=== PATIENT | female | born 1950 | race Caucasian/White ===

== ENCOUNTER 2020-01-27 14:50 | Inpatient (IN) | payer MEDICARE, MEDICAID, SELFPAY ==
[2020-01-27] VITALS (13 sets, daily range): BP systolic 137–179; BP diastolic 73–99; PULSE 109–122; RESP 16–32; TEMP 36.5–36.6; O2SAT 91–97; BMI 27.6; BMI 28.5
--- NOTE | 2020-01-27 15:23 | ED.SOB ---
HPI - SOB/Dyspnea <Annamariamellissa HernándezDO - Last Filed: 01/30/20 07:38> General Chief Complaint: Shortness of Breath/Dyspnea Stated Complaint: SOB Time Seen by Provider: 01/27/20 15:08 Related Data Home Medications Medication Instructions Recorded Confirmed No Known Home Medications 01/27/20 01/27/20 Allergies Allergy/AdvReac Type Severity Reaction Status Date / Time No Known Drug Allergies Allergy Verified 01/27/20 15:06 <Jennifer Leroy PA-C - Last Filed: 01/27/20 23:01> General Source: patient and family Mode of arrival: Wheelchair Limitations: no limitations History of Present Illness HPI Narrative: This is a 69-year-old woman with a history of CVA 2012 with reported mild left-sided deficit, chronic shortness of breath, hypertension, not on medications for the last 6 years with no PCP who presents to the emergency department from [facility] after a telemedicine visit and a chest x-ray concerning for possible CHF exacerbation with pleural effusions. Patient states that she has had increasing shortness of breath for the last 2 weeks. She notes this is worse with exertion and does report chronic issues with shortness of breath that come and go but this is the worse she has ever noted that to be. She also endorses a cough for the last few weeks but is not productive. She did feel last week she was having some ?panic attacks? and notes that this is unusual for her. Her reports that she had episode last week where she became sweaty and cold and he felt her heart rate and it was elevated She denies any fevers, chills, abdominal pain, nausea, vomiting, diarrhea, constipation or any other symptoms. <Jennifer Leroy PA-C - Last Filed: 01/27/20 23:01> Review of Systems Narrative: GENERAL: Denies chills, fatigue, malaise, fever, sweats. HEENT: Denies sinus pain, ear pain, sore throat, difficulty swallowing, dizziness. RESPIRATORY: Positive for dyspnea worse with exertion, positive for cough for 2 weeks, negative for wheezing, hemoptysis, sputum. CARDIOVASCULAR: Denies chest pain, positive for 1 episode of rapid heart rate/palpitations past week,, negative for orthopnea, edema, GASTROINTESTINAL: Denies nausea, vomiting, abdominal pain, diarrhea, constipation, melena. : Denies dysuria, frequency, incontinence, hematuria, urinary retention. MUSCULOSKELETAL: denies weakness, joint pain, or bony pain SKIN: Denies rash, skin lesions, or other NEUROLOGIC: Denies weakness, headache, numbness, change in speech, confusion, seizures, incoordination. PSYCHIATRIC: No concerning psychosocial issues. 12 point review of systems is negative except for those stated above ROS Unobtainable: All systems reviewed & are unremarkable except as noted in HPI and below Patient History <Annamaria Hernández DO - Last Filed: 01/30/20 07:38> Medical History CVA (cerebral vascular accident) (Acute) Hypertension (Acute) Surgical History Status post carotid surgery (Acute) Family History Father No problems noted. Mother Coronary artery disease Myocardial infarction Stroke Sister Myocardial infarction Social History household members: spouse and children Smoking Status: Unknown if ever smoked <Jennifer Leroy PA-C - Last Filed: 01/27/20 23:01> Smoking Status: Unknown if ever smoked alcohol intake frequency: holidays/special occasions only Substance Use Type: does not use Exam <DO Patricia Silvestre Last Filed: 01/30/20 07:38> Initial Vital Signs Initial Vital Signs: Vital Signs Temperature 97.7 F 01/27/20 15:00 Pulse Rate 122 H 01/27/20 15:00 Respiratory Rate 31 H 01/27/20 15:00 Blood Pressure 171/99 H 01/27/20 15:00 Pulse Oximetry 96 01/27/20 15:00 <Jennifer Leroy PA-C - Last Filed: 01/27/20 23:01> Narrative Exam Narrative: GENERAL: 69 year old patient appears stated age. Well-nourished, well-developed patient, in mild distress. HEAD: Atraumatic. Normocephalic. EYES: Pupils equal round and reactive. Extraocular motions intact. No scleral icterus. No injection or drainage. ENT: Nose without bleeding, purulent drainage. Throat without erythema, tonsillar hypertrophy or exudate. Airway patent. NECK: Trachea midline. Non tender CARDIOVASCULAR: Regular rate and rhythm without murmurs, gallops, or rubs. RESPIRATORY: Patient is slightly dyspneic at rest respiration rate 24. Upper wong are clear to auscultation bilaterally without wheezes rales or rhonchi, lower wong have mild crackles in the bases. GASTROINTESTINAL: Abdomen soft, non-tender, nondistended. EXTREMITIES: No edema or joint tenderness. BACK: Nontender without deformity or crepitance. No flank tenderness. NEURO: AOx3. SKIN: No rash or erythema of visible areas Initial Vital Signs Initial Vital Signs: Vital Signs Temperature 97.7 F 01/27/20 15:00 Pulse Rate 122 H 01/27/20 15:00 Respiratory Rate 31 H 01/27/20 15:00 Blood Pressure 171/99 H 01/27/20 15:00 Pulse Oximetry 96 01/27/20 15:00 <Jennifer Leroy PA-C - Last Filed: 01/27/20 23:01> GCS [place] coma scale eye opening: Spontaneous [place] coma scale verbal response: Orientated [place] coma scale motor response: Obey commands [place] coma scale total score: 15 HEART Score Heart Score history: Slightly Suspicious Heart Score EKG: Non-Specific repolarization disturbance Heart Score Age: > or = 65 years old Heart Score risk factors: 1-2 risk factors Heart Score troponin: 1-3 times normal limit Heart Score Total: 5 Course <Annamaria Hernández DO - Last Filed: 01/30/20 07:38> Orders Ordered: Acetaminophen (Tylenol) 650 mg PO Q6HR PRN PRN Reason: Fever/Mild Pain (1-3) Al Hydrox/Mg Hydrox/Simethicone (Maalox Plus) 30 ml PO Q6HR PRN PRN Reason: Dyspepsia Albuterol (Ventolin Hfa (Vent/Covid R/O)) 2 puff INH RTQ4HR PRN PRN Reason: Shortness Of Breath Or Wheezing Aspirin (Aspirin Ec) 81 mg PO DAILY [facility] Last Admin: 01/29/20 08:39 Dose: 81 mg Documented by: Admin: 01/28/20 09:35 Dose: 81 mg Documented by: ERVIN Atorvastatin Calcium (Lipitor) 40 mg PO BEDTIME [facility] Last Admin: 01/29/20 20:24 Dose: 40 mg Documented by: Admin: 01/28/20 21:31 Dose: 40 mg Documented by: NHI Bisacodyl (Dulcolax) 10 mg [place] DAILY PRN PRN Reason: Constipation Calcium Carbonate (Tums) 1,000 mg PO Q4HR PRN PRN Reason: Dyspepsia Docusate Sodium (Colace) 100 mg PO BID [facility] Last Admin: 01/29/20 20:24 Dose: 100 mg Documented by: Admin: 01/29/20 08:39 Dose: 100 mg Documented by: Admin: 01/28/20 21:32 Dose: Not Given Documented by: Admin: 01/28/20 09:35 Dose: Not Given Documented by: Admin: 01/27/20 20:20 Dose: 100 mg Documented by: LAURA Enoxaparin Sodium (Lovenox) 40 mg SUBCUT DAILY [facility] Last Admin: 01/29/20 08:39 Dose: 40 mg Documented by: Admin: 01/28/20 09:37 Dose: 40 mg Documented by: ERVIN Furosemide (Lasix) 40 mg PO 0800,1700 [facility] Last Admin: 01/29/20 16:31 Dose: 40 mg Documented by: ARNOLD Influenza Virus Vaccine (Flu Hd Vaccine) 0.7 ml IM .ONCE ONE Stop: 01/30/20 09:01 Metoprolol Tartrate (Lopressor) 50 mg PO BID [facility] Last Admin: 01/29/20 20:24 Dose: 50 mg Documented by: ARNOLD Ondansetron HCl (Zofran) 4 mg IV Q8HR PRN PRN Reason: Nausea And Vomiting Sodium Chloride (Normal Saline 0.9% Flush) 10 ml IV PRN PRN PRN Reason: Flush Sodium Chloride (Normal Saline 0.9% Flush) 10 ml IV BID [facility] Last Admin: 01/29/20 20:22 Dose: 10 ml Documented by: Admin: 01/29/20 08:39 Dose: 10 ml Documented by: Admin: 01/28/20 21:32 Dose: 10 ml Documented by: Admin: 10/23/20 09:36 Dose: 10 ml Documented by: ERVIN Discontinued Medications Acetaminophen (Tylenol) 650 mg PO Q6HR [facility] Aspirin (Aspirin Chew) 324 mg PO NOW ONE Stop: 01/27/20 16:27 Last Admin: 01/27/20 16:43 Dose: 324 mg Documented by: LEBRON Docusate Sodium (Colace) 100 mg PO BID [facility] Enoxaparin Sodium (Lovenox) 40 mg SUBCUT DAILY [facility] Furosemide (Lasix) 40 mg IV NOW ONE Stop: 01/27/20 16:27 Last Admin: 01/27/20 16:43 Dose: 40 mg Documented by: LEBRON Furosemide (Lasix) 20 mg PO DAILY [facility] Last Admin: 01/28/20 09:35 Dose: 20 mg Documented by: ERVIN Furosemide (Lasix) 40 mg IV 0700,1700 [facility] Last Admin: 01/29/20 06:03 Dose: 40 mg Documented by: Admin: 01/28/20 17:38 Dose: 40 mg Documented by: ENZO Influenza Virus Vaccine (Flu Hd Vaccine) 0.7 ml IM .ONCE ONE Stop: 01/28/20 14:01 Last Admin: 01/29/20 12:00 Dose: Not Given Documented by: JOVANI Lisinopril (Zestril) 5 mg PO NOW ONE Stop: 01/28/20 02:21 Last Admin: 01/28/20 02:47 Dose: 5 mg Documented by: QUINN Metoprolol Tartrate (Lopressor) 12.5 mg PO NOW ONE Stop: 01/27/20 19:31 Last Admin: 01/27/20 20:15 Dose: 12.5 mg Documented by: LAURA Metoprolol Tartrate (Lopressor) 12.5 mg PO BID [facility] Metoprolol Tartrate (Lopressor) 12.5 mg PO NOW ONE Stop: 01/28/20 02:19 Last Admin: 01/28/20 02:47 Dose: 12.5 mg Documented by: QUINN Metoprolol Tartrate (Lopressor) 25 mg PO BID [facility] Last Admin: 01/29/20 08:39 Dose: 25 mg Documented by: Admin: 01/28/20 21:31 Dose: 25 mg Documented by: Admin: 01/28/20 09:36 Dose: 25 mg Documented by: ERVIN Morphine Sulfate (Morphine) 2 mg IV Q4HR PRN PRN Reason: Pain, Moderate (4-6) Naloxone HCl (Narcan) 0.2 mg IV Q2MIN PRN PRN Reason: Opiate Reversal Naloxone HCl (Narcan) 0.2 mg IV Q2MIN PRN PRN Reason: Opiate Reversal Oxycodone HCl (Percolone) 5 mg PO Q6HR PRN PRN Reason: Pain, Moderate (4-6) Potassium Chloride (Klor-Con M20) 40 meq PO NOW ONE Stop: 01/28/20 11:06 Last Admin: 01/28/20 11:58 Dose: 40 meq Documented by: ERVIN Sennosides (Senna) 17.2 mg PO BEDTIME [facility] Vital Signs Vital signs: Vital Signs - 8 hr 01/27/20 15:00 01/27/20 15:04 01/27/20 15:30 Temperature 97.7 F Pulse Rate 122 H 120 H 119 H Respiratory Rate 31 H 32 H 30 H Blood Pressure 171/99 H 158/91 H Pulse Oximetry 96 96 96 01/27/20 16:00 01/27/20 16:30 01/27/20 17:03 Temperature Pulse Rate 113 H 114 H 122 H Respiratory Rate 27 H 27 H 32 H Blood Pressure 145/84 H 148/86 H 179/93 H Pulse Oximetry 92 95 97 01/27/20 17:30 Temperature Pulse Rate 116 H Respiratory Rate 29 H Blood Pressure 148/83 H Pulse Oximetry 93 <Jennifer Leroy PA-C - Last Filed: 01/27/20 23:01> Orders Ordered: Acetaminophen (Tylenol) 650 mg PO Q6HR PRN PRN Reason: Fever/Mild Pain (1-3) Al Hydrox/Mg Hydrox/Simethicone (Maalox Plus) 30 ml PO Q6HR PRN PRN Reason: Dyspepsia Albuterol (Ventolin Hfa (Vent/Covid R/O)) 2 puff INH RTQ4HR PRN PRN Reason: Shortness Of Breath Or Wheezing Aspirin (Aspirin Ec) 81 mg PO DAILY [facility] Last Admin: 01/29/20 08:39 Dose: 81 mg Documented by: Admin: 01/28/20 09:35 Dose: 81 mg Documented by: ERVIN Atorvastatin Calcium (Lipitor) 40 mg PO BEDTIME [facility] Last Admin: 01/29/20 20:24 Dose: 40 mg Documented by: Admin: 01/28/20 21:31 Dose: 40 mg Documented by: NHI Bisacodyl (Dulcolax) 10 mg [place] DAILY PRN PRN Reason: Constipation Calcium Carbonate (Tums) 1,000 mg PO Q4HR PRN PRN Reason: Dyspepsia Docusate Sodium (Colace) 100 mg PO BID [facility] Last Admin: 01/29/20 20:24 Dose: 100 mg Documented by: Admin: 01/29/20 08:39 Dose: 100 mg Documented by: Admin: 01/28/20 21:32 Dose: Not Given Documented by: Admin: 01/28/20 09:35 Dose: Not Given Documented by: Admin: 01/27/20 20:20 Dose: 100 mg Documented by: LAURA Enoxaparin Sodium (Lovenox) 40 mg SUBCUT DAILY [facility] Last Admin: 01/29/20 08:39 Dose: 40 mg Documented by: Admin: 01/28/20 09:37 Dose: 40 mg Documented by: ERVIN Furosemide (Lasix) 40 mg PO 0800,1700 [facility] Last Admin: 01/29/20 16:31 Dose: 40 mg Documented by: ARNOLD Influenza Virus Vaccine (Flu Hd Vaccine) 0.7 ml IM .ONCE ONE Stop: 01/30/20 09:01 Metoprolol Tartrate (Lopressor) 50 mg PO BID [facility] Last Admin: 01/29/20 20:24 Dose: 50 mg Documented by: ARNOLD Ondansetron HCl (Zofran) 4 mg IV Q8HR PRN PRN Reason: Nausea And Vomiting Sodium Chloride (Normal Saline 0.9% Flush) 10 ml IV PRN PRN PRN Reason: Flush Sodium Chloride (Normal Saline 0.9% Flush) 10 ml IV BID [facility] Last Admin: 01/29/20 20:22 Dose: 10 ml Documented by: Admin: 01/29/20 08:39 Dose: 10 ml Documented by: Admin: 01/28/20 21:32 Dose: 10 ml Documented by: Admin: 01/28/20 09:36 Dose: 10 ml Documented by: ERVIN Discontinued Medications Acetaminophen (Tylenol) 650 mg PO Q6HR [facility] Aspirin (Aspirin Chew) 324 mg PO NOW ONE Stop: 01/27/20 16:27 Last Admin: 01/27/20 16:43 Dose: 324 mg Documented by: LEBRON Docusate Sodium (Colace) 100 mg PO BID [facility] Enoxaparin Sodium (Lovenox) 40 mg SUBCUT DAILY [facility] Furosemide (Lasix) 40 mg IV NOW ONE Stop: 01/27/20 16:27 Last Admin: 01/27/20 16:43 Dose: 40 mg Documented by: LEBRON Furosemide (Lasix) 20 mg PO DAILY [facility] Last Admin: 01/28/20 09:35 Dose: 20 mg Documented by: ERVIN Furosemide (Lasix) 40 mg IV 0700,1700 [facility] Last Admin: 01/29/20 06:03 Dose: 40 mg Documented by: Admin: 01/28/20 17:38 Dose: 40 mg Documented by: ENZO Influenza Virus Vaccine (Flu Hd Vaccine) 0.7 ml IM .ONCE ONE Stop: 01/28/20 14:01 Last Admin: 01/29/20 12:00 Dose: Not Given Documented by: JOVANI Lisinopril (Zestril) 5 mg PO NOW ONE Stop: 01/28/20 02:21 Last Admin: 01/28/20 02:47 Dose: 5 mg Documented by: QUINN Metoprolol Tartrate (Lopressor) 12.5 mg PO NOW ONE Stop: 01/27/20 19:31 Last Admin: 01/27/20 20:15 Dose: 12.5 mg Documented by: LAURA Metoprolol Tartrate (Lopressor) 12.5 mg PO BID [facility] Metoprolol Tartrate (Lopressor) 12.5 mg PO NOW ONE Stop: 01/28/20 02:19 Last Admin: 01/28/20 02:47 Dose: 12.5 mg Documented by: QUINN Metoprolol Tartrate (Lopressor) 25 mg PO BID [facility] Last Admin: 01/29/20 08:39 Dose: 25 mg Documented by: Admin: 01/28/20 21:31 Dose: 25 mg Documented by: Admin: 01/28/20 09:36 Dose: 25 mg Documented by: ERVIN Morphine Sulfate (Morphine) 2 mg IV Q4HR PRN PRN Reason: Pain, Moderate (4-6) Naloxone HCl (Narcan) 0.2 mg IV Q2MIN PRN PRN Reason: Opiate Reversal Naloxone HCl (Narcan) 0.2 mg IV Q2MIN PRN PRN Reason: Opiate Reversal Oxycodone HCl (Percolone) 5 mg PO Q6HR PRN PRN Reason: Pain, Moderate (4-6) Potassium Chloride (Klor-Con M20) 40 meq PO NOW ONE Stop: 01/28/20 11:06 Last Admin: 01/28/20 11:58 Dose: 40 meq Documented by: ERVIN Sennosides (Senna) 17.2 mg PO BEDTIME [facility] Vital Signs Vital signs: Vital Signs - 8 hr 01/27/20 15:00 01/27/20 15:04 01/27/20 15:30 Temperature 97.7 F Pulse Rate 122 H 120 H 119 H Respiratory Rate 31 H 32 H 30 H Blood Pressure 171/99 H 158/91 H Pulse Oximetry 96 96 96 01/27/20 16:00 01/27/20 16:30 01/27/20 17:03 Temperature Pulse Rate 113 H 114 H 122 H Respiratory Rate 27 H 27 H 32 H Blood Pressure 145/84 H 148/86 H 179/93 H Pulse Oximetry 92 95 97 01/27/20 17:30 Temperature Pulse Rate 116 H Respiratory Rate 29 H Blood Pressure 148/83 H Pulse Oximetry 93 MDM - SOB/Dyspnea <Annamaria Hernández, - Last Filed: 01/30/20 07:38> Lab Data Result diagrams: 01/30/20 05:55 01/30/20 05:55 Labs: Lab Results 01/27/20 01/27/20 01/27/20 Range/Units 15:15 15:20 15:20 WBC 11.3 H (4.5-11.0) X10^3/uL RBC 4.55 (4.0-5.2) X10^6/uL Hgb 13.3 (12.0-16.0) g/dL Hct 40.0 (36-46) % MCV 88.0 (80-100) fL MCH 29.3 (26-34) PG MCHC 33.3 (30-36) % RDW 13.6 (11.6-14.8) % Plt Count 362 (150-400) X10^3/uL Neut % (Auto) 68.1 (50-75) % Lymph % (Auto) 23.8 L (25-40) % Ralls % (Auto) 7.2 (3-14) % Eos % (Auto) 0.3 L (2-4) % Baso % (Auto) 0.6 (0-2) % Neut # (Auto) 7700 H (5149-2109) /uL Lymph # (Auto) 2700 (5266-6700) /uL Ralls # (Auto) 800 (0-900) /uL Eos # (Auto) 0 (0-450) /uL Baso # (Auto) 100 (0-100) /uL Sodium 141 (137-145) mmol/L Potassium 4.1 (3.4-5.1) mmol/L Chloride 112 H (98-107) mmol/L Carbon Dioxide 22 (22-32) mmol/L BUN 29 H (7-17) mg/dL Creatinine 0.68 (0.52-1.04) mg/dL Estimated GFR > 60.0 (>60) mL/min BUN/Creatinine Ratio 42.6 H (6-22) Glucose 107 (80-110) mg/dL Lactate (0.7-2.1) mmol/L Calcium 9.4 (8.4-10.2) mg/dL Magnesium (1.6-2.3) mg/dL Total Bilirubin 0.8 (0.2-1.3) mg/dL AST 37 H (14-36) IU/L ALT 60 H (<35) IU/L Alkaline Phosphatase 73 (38-126) U/L Total Creatine Kinase (30-135) U/L CK-MB (CK-2) CK-MB (CK-2) Rel Index Troponin I (0.01-0.034) ng/mL NT-Pro-B Natriuret Pep (<125) pg/mL Total Protein 6.8 (6.3-8.2) g/dL Albumin 4.0 (3.5-5.0) g/dL Globulin 2.8 (1.7-4.1) g/dL Albumin/Globulin Ratio 1.4 (1.0-2.8) Procalcitonin (<0.5) ng/mL TSH (0.47-4.68) uIU/mL Urine Color Urine Appearance Urine pH (4.5-8.0) Ur Specific [place] (1.000-1.035) Urine Protein (Negative) Urine Glucose (UA) (Negative) g/dL Urine Ketones (NEGATIVE) Urine Occult Blood (Negative) Urine Nitrate (Negative) Urine Bilirubin (NEGATIVE) Urine Urobilinogen (0.2) E.U./dL Ur Leukocyte Esterase (NEGATIVE) Urine RBC (0-5/HPF) Urine WBC (0-5/HPF) Ur Squamous Epith Cells (0-5/HPF) Urine Bacteria (None) Ur Culture Indicated? COVID-19 PCR Negative (Negative) 01/27/20 01/27/20 01/27/20 Range/Units 15:20 15:20 15:20 WBC (4.5-11.0) X10^3/uL RBC (4.0-5.2) X10^6/uL Hgb (12.0-16.0) g/dL Hct (36-46) % MCV (80-100) fL MCH (26-34) PG MCHC (30-36) % RDW (11.6-14.8) % Plt Count (150-400) X10^3/uL Neut % (Auto) (50-75) % Lymph % (Auto) (25-40) % Ralls % (Auto) (3-14) % Eos % (Auto) (2-4) % Baso % (Auto) (0-2) % Neut # (Auto) (8283-1084) /uL Lymph # (Auto) (8333-8796) /uL Ralls # (Auto) (0-900) /uL Eos # (Auto) (0-450) /uL Baso # (Auto) (0-100) /uL Sodium (137-145) mmol/L Potassium (3.4-5.1) mmol/L Chloride (98-107) mmol/L Carbon Dioxide (22-32) mmol/L BUN (7-17) mg/dL Creatinine (0.52-1.04) mg/dL Estimated GFR (>60) mL/min BUN/Creatinine Ratio (6-22) Glucose (80-110) mg/dL Lactate 1.5 (0.7-2.1) mmol/L Calcium (8.4-10.2) mg/dL Magnesium 2.2 (1.6-2.3) mg/dL Total Bilirubin (0.2-1.3) mg/dL AST (14-36) IU/L ALT (<35) IU/L Alkaline Phosphatase (38-126) U/L Total Creatine Kinase 37 (30-135) U/L CK-MB (CK-2) TNP CK-MB (CK-2) Rel Index TNP Troponin I 0.046 H (0.01-0.034) ng/mL NT-Pro-B Natriuret Pep 22817 H (<125) pg/mL Total Protein (6.3-8.2) g/dL Albumin (3.5-5.0) g/dL Globulin (1.7-4.1) g/dL Albumin/Globulin Ratio (1.0-2.8) Procalcitonin < 0.05 (<0.5) ng/mL TSH (0.47-4.68) uIU/mL Urine Color Urine Appearance Urine pH (4.5-8.0) Ur Specific [place] (1.000-1.035) Urine Protein (Negative) Urine Glucose (UA) (Negative) g/dL Urine Ketones (NEGATIVE) Urine Occult Blood (Negative) Urine Nitrate (Negative) Urine Bilirubin (NEGATIVE) Urine Urobilinogen (0.2) E.U./dL Ur Leukocyte Esterase (NEGATIVE) Urine RBC (0-5/HPF) Urine WBC (0-5/HPF) Ur Squamous Epith Cells (0-5/HPF) Urine Bacteria (None) Ur Culture Indicated? COVID-19 PCR (Negative) 01/27/20 01/27/20 Range/Units 15:20 17:06 WBC (4.5-11.0) X10^3/uL RBC (4.0-5.2) X10^6/uL Hgb (12.0-16.0) g/dL Hct (36-46) % MCV (80-100) fL MCH (26-34) PG MCHC (30-36) % RDW (11.6-14.8) % Plt Count (150-400) X10^3/uL Neut % (Auto) (50-75) % Lymph % (Auto) (25-40) % Ralls % (Auto) (3-14) % Eos % (Auto) (2-4) % Baso % (Auto) (0-2) % Neut # (Auto) (0867-9724) /uL Lymph # (Auto) (1021-4901) /uL Ralls # (Auto) (0-900) /uL Eos # (Auto) (0-450) /uL Baso # (Auto) (0-100) /uL Sodium (137-145) mmol/L Potassium (3.4-5.1) mmol/L Chloride (98-107) mmol/L Carbon Dioxide (22-32) mmol/L BUN (7-17) mg/dL Creatinine (0.52-1.04) mg/dL Estimated GFR (>60) mL/min BUN/Creatinine Ratio (6-22) Glucose (80-110) mg/dL Lactate (0.7-2.1) mmol/L Calcium (8.4-10.2) mg/dL Magnesium (1.6-2.3) mg/dL Total Bilirubin (0.2-1.3) mg/dL AST (14-36) IU/L ALT (<35) IU/L Alkaline Phosphatase (38-126) U/L Total Creatine Kinase (30-135) U/L CK-MB (CK-2) CK-MB (CK-2) Rel Index Troponin I (0.01-0.034) ng/mL NT-Pro-B Natriuret Pep (<125) pg/mL Total Protein (6.3-8.2) g/dL Albumin (3.5-5.0) g/dL Globulin (1.7-4.1) g/dL Albumin/Globulin Ratio (1.0-2.8) Procalcitonin (<0.5) ng/mL TSH 1.50 (0.47-4.68) uIU/mL Urine Color Yellow Urine Appearance Clear Urine pH 5.0 (4.5-8.0) Ur Specific [place] 1.025 (1.000-1.035) Urine Protein Negative (Negative) Urine Glucose (UA) Negative (Negative) g/dL Urine Ketones Trace H (NEGATIVE) Urine Occult Blood 2+ H (Negative) Urine Nitrate Negative (Negative) Urine Bilirubin Negative (NEGATIVE) Urine Urobilinogen 0.2 (0.2) E.U./dL Ur Leukocyte Esterase Negative (NEGATIVE) Urine RBC 1-5/hpf (0-5/HPF) Urine WBC 0-1/hpf (0-5/HPF) Ur Squamous Epith Cells 0-1 /hpf (0-5/HPF) Urine Bacteria None seen (None) Ur Culture Indicated? Cult not indicated COVID-19 PCR (Negative) ECG Data Attestation: I personally reviewed and interpreted this ECG as follows: Prior ECG tracings: available for review Interpretation: Sinus tachycardia rate of 118 CA 164 QRS of 104 and QTC of 487. LVH, patient has some lotion artifact but no ST elevation appreciated. Patient has prior EKG from July of 2012 which has similar LVH refill pattern but does not have sinus tachycardia. Nonspecific ST change noted today. <Jennifer Leroy PA-C - Last Filed: 01/27/20 23:01> Differential Diagnosis Differential diagnosis: Likely acute exacerbation of chronic obstructive airways disease, congestive heart failure, community acquired pneumonia, pulmonary embolism and other (COVID, URI) Medical Records Attestation: I reviewed the patient's medical records. Lab Data Attestation: I reviewed the patient's lab results. Labs: Lab Results 01/27/20 01/27/20 01/27/20 Range/Units 15:15 15:20 15:20 WBC 11.3 H (4.5-11.0) X10^3/uL RBC 4.55 (4.0-5.2) X10^6/uL Hgb 13.3 (12.0-16.0) g/dL Hct 40.0 (36-46) % MCV 88.0 (80-100) fL MCH 29.3 (26-34) PG MCHC 33.3 (30-36) % RDW 13.6 (11.6-14.8) % Plt Count 362 (150-400) X10^3/uL Neut % (Auto) 68.1 (50-75) % Lymph % (Auto) 23.8 L (25-40) % Ralls % (Auto) 7.2 (3-14) % Eos % (Auto) 0.3 L (2-4) % Baso % (Auto) 0.6 (0-2) % Neut # (Auto) 7700 H (6477-0416) /uL Lymph # (Auto) 2700 (8731-5125) /uL Ralls # (Auto) 800 (0-900) /uL Eos # (Auto) 0 (0-450) /uL Baso # (Auto) 100 (0-100) /uL Sodium 141 (137-145) mmol/L Potassium 4.1 (3.4-5.1) mmol/L Chloride 112 H (98-107) mmol/L Carbon Dioxide 22 (22-32) mmol/L BUN 29 H (7-17) mg/dL Creatinine 0.68 (0.52-1.04) mg/dL Estimated GFR > 60.0 (>60) mL/min BUN/Creatinine Ratio 42.6 H (6-22) Glucose 107 (80-110) mg/dL Lactate (0.7-2.1) mmol/L Calcium 9.4 (8.4-10.2) mg/dL Magnesium (1.6-2.3) mg/dL Total Bilirubin 0.8 (0.2-1.3) mg/dL AST 37 H (14-36) IU/L ALT 60 H (<35) IU/L Alkaline Phosphatase 73 (38-126) U/L Total Creatine Kinase (30-135) U/L CK-MB (CK-2) CK-MB (CK-2) Rel Index Troponin I (0.01-0.034) ng/mL NT-Pro-B Natriuret Pep (<125) pg/mL Total Protein 6.8 (6.3-8.2) g/dL Albumin 4.0 (3.5-5.0) g/dL Globulin 2.8 (1.7-4.1) g/dL Albumin/Globulin Ratio 1.4 (1.0-2.8) Procalcitonin (<0.5) ng/mL TSH (0.47-4.68) uIU/mL Urine Color Urine Appearance Urine pH (4.5-8.0) Ur Specific [place] (1.000-1.035) Urine Protein (Negative) Urine Glucose (UA) (Negative) g/dL Urine Ketones (NEGATIVE) Urine Occult Blood (Negative) Urine Nitrate (Negative) Urine Bilirubin (NEGATIVE) Urine Urobilinogen (0.2) E.U./dL Ur Leukocyte Esterase (NEGATIVE) Urine RBC (0-5/HPF) Urine WBC (0-5/HPF) Ur Squamous Epith Cells (0-5/HPF) Urine Bacteria (None) Ur Culture Indicated? COVID-19 PCR Negative (Negative) 01/27/20 01/27/20 01/27/20 Range/Units 15:20 15:20 15:20 WBC (4.5-11.0) X10^3/uL RBC (4.0-5.2) X10^6/uL Hgb (12.0-16.0) g/dL Hct (36-46) % MCV (80-100) fL MCH (26-34) PG MCHC (30-36) % RDW (11.6-14.8) % Plt Count (150-400) X10^3/uL Neut % (Auto) (50-75) % Lymph % (Auto) (25-40) % Ralls % (Auto) (3-14) % Eos % (Auto) (2-4) % Baso % (Auto) (0-2) % Neut # (Auto) (4851-7062) /uL Lymph # (Auto) (2981-9718) /uL Ralls # (Auto) (0-900) /uL Eos # (Auto) (0-450) /uL Baso # (Auto) (0-100) /uL Sodium (137-145) mmol/L Potassium (3.4-5.1) mmol/L Chloride (98-107) mmol/L Carbon Dioxide (22-32) mmol/L BUN (7-17) mg/dL Creatinine (0.52-1.04) mg/dL Estimated GFR (>60) mL/min BUN/Creatinine Ratio (6-22) Glucose (80-110) mg/dL Lactate 1.5 (0.7-2.1) mmol/L Calcium (8.4-10.2) mg/dL Magnesium 2.2 (1.6-2.3) mg/dL Total Bilirubin (0.2-1.3) mg/dL AST (14-36) IU/L ALT (<35) IU/L Alkaline Phosphatase (38-126) U/L Total Creatine Kinase 37 (30-135) U/L CK-MB (CK-2) TNP CK-MB (CK-2) Rel Index TNP Troponin I 0.046 H (0.01-0.034) ng/mL NT-Pro-B Natriuret Pep 01108 H (<125) pg/mL Total Protein (6.3-8.2) g/dL Albumin (3.5-5.0) g/dL Globulin (1.7-4.1) g/dL Albumin/Globulin Ratio (1.0-2.8) Procalcitonin < 0.05 (<0.5) ng/mL TSH (0.47-4.68) uIU/mL Urine Color Urine Appearance Urine pH (4.5-8.0) Ur Specific [place] (1.000-1.035) Urine Protein (Negative) Urine Glucose (UA) (Negative) g/dL Urine Ketones (NEGATIVE) Urine Occult Blood (Negative) Urine Nitrate (Negative) Urine Bilirubin (NEGATIVE) Urine Urobilinogen (0.2) E.U./dL Ur Leukocyte Esterase (NEGATIVE) Urine RBC (0-5/HPF) Urine WBC (0-5/HPF) Ur Squamous Epith Cells (0-5/HPF) Urine Bacteria (None) Ur Culture Indicated? COVID-19 PCR (Negative) 01/27/20 01/27/20 Range/Units 15:20 17:06 WBC (4.5-11.0) X10^3/uL RBC (4.0-5.2) X10^6/uL Hgb (12.0-16.0) g/dL Hct (36-46) % MCV (80-100) fL MCH (26-34) PG MCHC (30-36) % RDW (11.6-14.8) % Plt Count (150-400) X10^3/uL Neut % (Auto) (50-75) % Lymph % (Auto) (25-40) % [place] % (Auto) (3-14) % Eos % (Auto) (2-4) % Baso % (Auto) (0-2) % Neut # (Auto) (0918-0396) /uL Lymph # (Auto) (4010-0289) /uL [place] # (Auto) (0-900) /uL Eos # (Auto) (0-450) /uL Baso # (Auto) (0-100) /uL Sodium (137-145) mmol/L Potassium (3.4-5.1) mmol/L Chloride (98-107) mmol/L Carbon Dioxide (22-32) mmol/L BUN (7-17) mg/dL Creatinine (0.52-1.04) mg/dL Estimated GFR (>60) mL/min BUN/Creatinine Ratio (6-22) Glucose (80-110) mg/dL Lactate (0.7-2.1) mmol/L Calcium (8.4-10.2) mg/dL Magnesium (1.6-2.3) mg/dL Total Bilirubin (0.2-1.3) mg/dL AST (14-36) IU/L ALT (<35) IU/L Alkaline Phosphatase (38-126) U/L Total Creatine Kinase (30-135) U/L CK-MB (CK-2) CK-MB (CK-2) Rel Index Troponin I (0.01-0.034) ng/mL NT-Pro-B Natriuret Pep (<125) pg/mL Total Protein (6.3-8.2) g/dL Albumin (3.5-5.0) g/dL Globulin (1.7-4.1) g/dL Albumin/Globulin Ratio (1.0-2.8) Procalcitonin (<0.5) ng/mL TSH 1.50 (0.47-4.68) uIU/mL Urine Color Yellow Urine Appearance Clear Urine pH 5.0 (4.5-8.0) Ur Specific [place] 1.025 (1.000-1.035) Urine Protein Negative (Negative) Urine Glucose (UA) Negative (Negative) g/dL Urine Ketones Trace H (NEGATIVE) Urine Occult Blood 2+ H (Negative) Urine Nitrate Negative (Negative) Urine Bilirubin Negative (NEGATIVE) Urine Urobilinogen 0.2 (0.2) E.U./dL Ur Leukocyte Esterase Negative (NEGATIVE) Urine RBC 1-5/hpf (0-5/HPF) Urine WBC 0-1/hpf (0-5/HPF) Ur Squamous Epith Cells 0-1 /hpf (0-5/HPF) Urine Bacteria None seen (None) Ur Culture Indicated? Cult not indicated COVID-19 PCR (Negative) Imaging Data Chest x-ray: Attestation: I personally reviewed and interpreted this imaging study as follows: Radiologist's Impression: [address] [place] [address] XRay Report Signed Patient: Reuben Haney#: [id number] : 3Acct:[id number] Age/Sex: 69 / FDate of Service: 01/27/20 Loc: ED Accession Number: [id number] Procedure: XR chest 1V Ordering Provider: Jennifer Leroy P.A-C PROCEDURE: XR CHEST 1V INDICATIONS: CHF TECHNIQUE: One view of the chest was acquired. COMPARISON: [facility], CHEST 1 VIEW, 07/06/2012, 14:08. FINDINGS: Surgical changes and devices: None. Lungs and pleura: Moderate size airspace opacity in left upper lung field is seen suggestive of left upper lobe infiltrate. Small bilateral pleural effusion is seen. Mild pulmonary vascular congestion and mild pulmonary edema is also noted. Mediastinum: Mediastinal contours appear normal. Heart size is enlarged. Bones and chest wall: No suspicious bony lesions. Overlying soft tissues appear unremarkable. IMPRESSION: CHF changes with suggestion of superimposed left upper lobe infiltrate. No pneumothorax. Dictated by: Remy Harding M.D. on 01/27/2020 at 15:51 Approved by: Remy Harding M.D. on 01/27/2020 at 15:52 ECG Data Attestation: I personally reviewed and interpreted this ECG as follows: Prior ECG tracings: not available for review Interpretation: Sinus tachycardia Rate 118, CA 164 QRS 104 MDM Narrative Medical decision making narrative: Uncomfortable appearing 69-year-old woman history of CVA 2012 reported chronic shortness of breath, not on any medications, 1 telemedicine visit in the last few days otherwise no reported medical care for 6 years. Patient's history and exam and x-ray are consistent with CHF exacerbation. Her BNP is over 11,000. She has a slightly elevated troponin likely resultant of her heart failure /exacerbation. EKG with sinus tachycardia and LVH. Patient has poor understanding of her medical history stop taking medications 6 years ago 1 year after her stroke, unclear if she has a history of CHF. Reports history of hypertension, not on any medications. A patient lives on [address] with no hospital, given her worsening shortness of breath, BNP, pleural effusions on her chest x-ray concern for possible pneumonia, she is admitted to the hospital for observation and further treatment. To the care of Dr. Hill. Lasix is initiated in the emergency department. Patient reported poor adherence with medications and medical care partially due to concern for cost, she may benefit from social work consult or resources to help her access medical insurance /ongoing medical care. Discharge Plan Departure Patient Disposition: Admitted as Observation Clinical Impression: Shortness of breath Acute CHF (congestive heart failure) Qualifiers: Heart failure type: unspecified Qualified Code(s): I50.9 - Heart failure, unspecified Discharge Date/Time: 01/27/20 18:51 Referrals: Sixto Jacobs MD [Primary Care Provider] - Admit Date/Time: 01/27/20 18:00 Admit Provider: Bran Hill
[2020-01-27 15:33] LABS: COVID19 -Nasal RAPID Negative (Negative)
[2020-01-27 15:39] LABS: Add Manual Diff / Slide Review NO; Basophils Absolute Auto 100 /uL (0-100); Basophils Percent Auto 0.6 % (0-2); Eosinophils Absolute Auto 0 /uL (0-450); Eosinophils Percent Auto 0.3 % (2-4); Hemoglobin 13.3 g/dL (12.0-16.0); Lymphocytes Absolute Auto 2700 /uL (1100-4500); Lymphocytes Percent Auto 23.8 % (25-40); Mean Corpuscular HGB Conc 33.3 % (30-36); Mean Corpuscular Hemoglobin 29.3 PG (26-34); Monocytes Absolute Auto 800 /uL (0-900); Monocytes Percent Auto 7.2 % (3-14); Neutrophils Absolute Auto 7700 /uL (1500-7000); Neutrophils Percent Auto 68.1 % (50-75); Platelet Count 362 X10^3/uL (150-400); Red Blood Cell Count 4.55 X10^6/uL (4.0-5.2); Red Cell Distribution Width 13.6 % (11.6-14.8); White Blood Cell Count 11.3 X10^3/uL (4.5-11.0)
[2020-01-27 15:55] LABS: Lactate (Lactic Acid) 1.5 mmol/L (0.7-2.1)
[2020-01-27 15:58] LABS: Creatine Kinase 37 U/L (30-135); Magnesium 2.2 mg/dL (1.6-2.3)
[2020-01-27 15:59] LABS: Alanine Aminotransferase 60 IU/L (<35); Albumin Globulin Ratio 1.4 (1.0-2.8); Alkaline Phosphatase 73 U/L (38-126); Aspartate Aminotransferase 37 IU/L (14-36); BUN Creatinine Ratio 42.6 (6-22); Bilirubin Total 0.8 mg/dL (0.2-1.3); Blood Urea Nitrogen 29 mg/dL (7-17); Calcium 9.4 mg/dL (8.4-10.2); Carbon Dioxide 22 mmol/L (22-32); Chloride 112 mmol/L (98-107); Estimated Glomerular Filt Rate > 60.0 mL/min (>60); Globulin 2.8 g/dL (1.7-4.1); Glucose 107 mg/dL (80-110); HEMOLYSIS < 15 (0-50); Potassium 4.1 mmol/L (3.4-5.1); Sodium 141 mmol/L (137-145); Total Protein 6.8 g/dL (6.3-8.2)
[2020-01-27 16:05] LABS: NT-proBNP (BNP-Adult 18+) 11300 pg/mL (<125)
[2020-01-27 16:11] LABS: Troponin I 0.046 ng/mL (0.01-0.034)
[2020-01-27 16:13] LABS: Procalcitonin < 0.05 ng/mL (<0.5)
--- NOTE | 2020-01-27 16:34 | DI.RAD.S_ITS ---
PROCEDURE: XR CHEST 1V INDICATIONS: CHF TECHNIQUE: One view of the chest was acquired. COMPARISON: [facility], , CHEST 1 VIEW, 07/06/2012, 14:08. FINDINGS: Surgical changes and devices: None. Lungs and pleura: Moderate size airspace opacity in left upper lung field is seen suggestive of left upper lobe infiltrate. Small bilateral pleural effusion is seen. Mild pulmonary vascular congestion and mild pulmonary edema is also noted. Mediastinum: Mediastinal contours appear normal. Heart size is enlarged. Bones and chest wall: No suspicious bony lesions. Overlying soft tissues appear unremarkable. IMPRESSION: CHF changes with suggestion of superimposed left upper lobe infiltrate. No pneumothorax. Dictated by: Remy Harding M.D. on 01/27/2020 at 15:51 Approved by: Remy Harding M.D. on 01/27/2020 at 15:52
[2020-01-27] MEDS: ASPIRIN 81 MG CHEW TAB 324 MG PO (16:43)
[2020-01-27] MEDS: FUROSEMIDE 40 MG/4 ML VIAL IV (16:43)
[2020-01-27 17:16] LABS: Bacteria Urine None Seen
[2020-01-27 17:25] LABS: Appearance Urine UA CLEAR; Bilirubin Urine UA NEGATIVE (NEGATIVE); Color Urine UA YELLOW; Glucose Urine UA NEGATIVE (Negative); Ketones Urine UA TRACE (NEGATIVE); Leukocyte Esterase Urine UA NEGATIVE (NEGATIVE); Nitrite Urine UA NEGATIVE (Negative); Occult Blood Urine UA 2+ (Negative); Protein Urine UA NEGATIVE (Negative); Specific Gravity Urine UA 1.025 (1.000-1.035); Urobilinogen Urine UA 0.2 E.U./dL (0.2)
[2020-01-27 17:33] LABS: Culture Indicated Urine Cult Not Indicated; RBC Urine 1-5/HPF (0-5/HPF); Squamous Epithelial Cell Urine 0-1 /HPF (0-5/HPF); WBC Urine 0-1/HPF (0-5/HPF)
--- NOTE | 2020-01-27 18:16 | PM.HP.1 ---
History of Present Illness History of Present Illness Date Patient Seen: 01/27/20 Time Patient Seen: 18:17 Chief complaint: SOB Narrative: [place] Patient History Family & Social History Safety & Behavioral: Feels Safe in Current Yes Environment Been Physically Hurt or No Threatened By a Person Tobacco & Substance use: Smoking Status Unknown if ever smoked alcohol intake frequency holiday/special occasion Substance Use Type does not use Meds Home Medications and Allergies Allergies Allergy/AdvReac Type Severity Reaction Status Date / Time No Known Drug Allergies Allergy Verified 01/27/20 15:06 Exam Vital Signs (past 8 hours): - 01/27/20 15:00 01/27/20 15:04 01/27/20 15:30 Temperature 97.7 F Pulse Rate 122 H 120 H 119 H Respiratory Rate 31 H 32 H 30 H Blood Pressure 171/99 H 158/91 H Pulse Oximetry 96 96 96 01/27/20 16:00 01/27/20 16:30 01/27/20 17:03 Temperature Pulse Rate 113 H 114 H 122 H Respiratory Rate 27 H 27 H 32 H Blood Pressure 145/84 H 148/86 H 179/93 H Pulse Oximetry 92 95 97 01/27/20 17:30 Temperature Pulse Rate 116 H Respiratory Rate 29 H Blood Pressure 148/83 H Pulse Oximetry 93 Oxygen Delivery Method Room Air Objective Labs Result Diagrams: 01/27/20 15:20 01/27/20 15:20 Labs: Laboratory Results - last 24 hr 01/27/20 01/27/20 01/27/20 15:15 15:20 15:20 WBC 11.3 H RBC 4.55 Hgb 13.3 Hct 40.0 MCV 88.0 MCH 29.3 MCHC 33.3 RDW 13.6 Plt Count 362 Neut % (Auto) 68.1 Lymph % (Auto) 23.8 L [place] % (Auto) 7.2 Eos % (Auto) 0.3 L Baso % (Auto) 0.6 Neut # (Auto) 7700 H Lymph # (Auto) 2700 [place] # (Auto) 800 Eos # (Auto) 0 Baso # (Auto) 100 Sodium 141 Potassium 4.1 Chloride 112 H Carbon Dioxide 22 BUN 29 H Creatinine 0.68 Estimated GFR > 60.0 BUN/Creatinine Ratio 42.6 H Glucose 107 Lactate Calcium 9.4 Magnesium Total Bilirubin 0.8 AST 37 H ALT 60 H Alkaline Phosphatase 73 Total Creatine Kinase CK-MB (CK-2) CK-MB (CK-2) Rel Index Troponin I NT-Pro-B Natriuret Pep Total Protein 6.8 Albumin 4.0 Globulin 2.8 Albumin/Globulin Ratio 1.4 Procalcitonin Urine Color Urine Appearance Urine pH Ur Specific [place] Urine Protein Urine Glucose (UA) Urine Ketones Urine Occult Blood Urine Nitrate Urine Bilirubin Urine Urobilinogen Ur Leukocyte Esterase Urine RBC Urine WBC Ur Squamous Epith Cells Urine Bacteria Ur Culture Indicated? COVID-19 PCR Negative 01/27/20 01/27/20 01/27/20 15:20 15:20 15:20 WBC RBC Hgb Hct MCV MCH MCHC RDW Plt Count Neut % (Auto) Lymph % (Auto) [place] % (Auto) Eos % (Auto) Baso % (Auto) Neut # (Auto) Lymph # (Auto) [place] # (Auto) Eos # (Auto) Baso # (Auto) Sodium Potassium Chloride Carbon Dioxide BUN Creatinine Estimated GFR BUN/Creatinine Ratio Glucose Lactate 1.5 Calcium Magnesium 2.2 Total Bilirubin AST ALT Alkaline Phosphatase Total Creatine Kinase 37 CK-MB (CK-2) TNP CK-MB (CK-2) Rel Index TNP Troponin I 0.046 H NT-Pro-B Natriuret Pep 72529 H Total Protein Albumin Globulin Albumin/Globulin Ratio Procalcitonin < 0.05 Urine Color Urine Appearance Urine pH Ur Specific [place] Urine Protein Urine Glucose (UA) Urine Ketones Urine Occult Blood Urine Nitrate Urine Bilirubin Urine Urobilinogen Ur Leukocyte Esterase Urine RBC Urine WBC Ur Squamous Epith Cells Urine Bacteria Ur Culture Indicated? COVID-19 PCR 01/27/20 17:06 WBC RBC Hgb Hct MCV MCH MCHC RDW Plt Count Neut % (Auto) Lymph % (Auto) [place] % (Auto) Eos % (Auto) Baso % (Auto) Neut # (Auto) Lymph # (Auto) [place] # (Auto) Eos # (Auto) Baso # (Auto) Sodium Potassium Chloride Carbon Dioxide BUN Creatinine Estimated GFR BUN/Creatinine Ratio Glucose Lactate Calcium Magnesium Total Bilirubin AST ALT Alkaline Phosphatase Total Creatine Kinase CK-MB (CK-2) CK-MB (CK-2) Rel Index Troponin I NT-Pro-B Natriuret Pep Total Protein Albumin Globulin Albumin/Globulin Ratio Procalcitonin Urine Color Yellow Urine Appearance Clear Urine pH 5.0 Ur Specific [place] 1.025 Urine Protein Negative Urine Glucose (UA) Negative Urine Ketones Trace H Urine Occult Blood 2+ H Urine Nitrate Negative Urine Bilirubin Negative Urine Urobilinogen 0.2 Ur Leukocyte Esterase Negative Urine RBC 1-5/hpf Urine WBC 0-1/hpf Ur Squamous Epith Cells 0-1 /hpf Urine Bacteria None seen Ur Culture Indicated? Cult not indicated COVID-19 PCR
--- NOTE | 2020-01-27 19:40 | DI.ECHO.S_ITS ---
[facility] +---------+ : : [address] : : : : [id number] : : : : Phone: [phone] Echocardiogram Report + + :Name: SOHA WADDELL Study Date: 01/28/2020 Height: 63 in : :[facility] Weight: 161 lb : : Gender: Female BSA: 1.8 m2 : :: 1950 Age: 69 yrs BP: 108/72 mmHg: :Reason For Study: CHF, PULMONARY EDEMA : : Performed By: Ronan Dominguez : :Referring: MARIANNE YANG : + + Interpretation Summary 1) Normal left ventricular size with severely reduced systolic function (EF 15-20%). 2) Normal right ventricular size with mildly-moderately reduced systolic function. 3) Moderate functional mitral regurgitation present. 4) There is a moderate right-sided pleural effusion. 5) No prior Echo available for comparison. Procedure: A two-dimensional transthoracic echocardiogram with color flow and Doppler was performed. The study quality was technically good. Comparison is made with the echocardiogram of 07/07/12. The patient was in normal sinus rhythm during the exam. The patient was tachycardic with a heart rate of 102- 112 beats per minute. Left Ventricle: The left ventricle is normal in size. Left ventricular wall thickness is mildly increased. There is no thrombus. The ejection fraction is estimated to be 15-20%. There is severe global hypokinesis of the left ventricle. Right Ventricle: The right ventricle is normal size. Right ventricular systolic function is mild to moderately reduced. Atria: The left atrium is severely dilated. Right atrial size is normal. There is no Doppler evidence for an atrial septal defect. Mitral Valve: The mitral valve leaflets appear borderline thickened, but open well. There is moderate mitral regurgitation. Aortic Valve: The aortic valve is trileaflet. The aortic valve opens well. There is no aortic valve stenosis. No aortic regurgitation is present. Tricuspid Valve: The tricuspid valve is normal in structure and function. There is trace tricuspid regurgitation. The right ventricular systolic pressure is estimated to be at least 33 mmHg based on an estimated right atrial pressure of 3 mm Hg. Pulmonic Valve: The pulmonic valve is normal in structure and function. There is trace pulmonic regurgitation. Great Vessels: The aortic root is normal size. The dimensions of the ascending aorta are normal. The pulmonary artery is normal size. The IVC is of normal diameter and collapses greater than 50% with a sniff. This suggests a low right atrial pressure of 3 mm Hg. Pericardium/ Pleura There is no pericardial effusion. There is a moderate right-sided pleural effusion. MMode/2D Measurements & Calculations LVIDd: 5.2 cm LVOT diam: 2.1 cm LVIDs: 4.5 cm Ao root diam: 2.9 cm FS: 14.5 % asc Aorta Diam: 3.0 cm EPSS: 1.6 cm Ao Arch Diam (Prox Trans): 1.7 cm IVSd: 1.1 cm LVPWd: 1.1 cm LV desir. diameter/BSA (cm/m^2): 3.0 LV sys. diameter/BSA (cm/m^2): 2.5 LA dimension: 4.1 cm RA long axis: 4.4 cm LA A2 area: 29.5 cm2 RA area: 15.0 cm2 LA A4 area: 27.5 cm2 RA vol: 42.8 ml LA length (vol): 6.1 cm RA : 24.3 ml/m2 LA vol: 113.4 ml IVC diam: 1.7 cm LA vol index: 64.3 ml/m2 RVD1 (basal): 3.1 cm RVD2 (mid): 2.5 cm TAPSE: 1.1 cm Doppler Measurements & Calculations Ao V2 max: 105.4 cm/sec LVOT Max Jose: 67.7 cm/sec Ao V2 mean: 79.3 cm/sec LV V1 max P.8 mmHg Ao max P.4 mmHg LV V1 VTI: 9.6 cm Ao mean P.7 mmHg GHANSHYAM(I,D): 1.9 cm2 Ao V2 VTI: 17.8 cm GHANSHYAM(V,D): 2.3 cm2 sev ratio: 0.54 GHANSHYAM indexed to BSA (cm^2/m^2): 1.1 MV E max jose: 91.8 cm/sec TR max jose: 272.5 cm/sec MV A max jose: 1.8 cm/sec TR max P.7 mmHg MV E/A: 50.3 PA V2 max: 41.7 cm/sec Med Peak E' Jose: 5.4 cm/sec PA V2 mean: 32.9 cm/sec E/E' med: 17.1 PA mean P.46 mmHg Lat Peak E' Jose: 6.7 cm/sec PA pr(Accel): 53.3 mmHg E/E' lat: 13.6 E/e' average: 15.4 MV dec time: 0.08 sec MR PISA: 1.6 cm2 SV(LVOT): 34.3 ml MR flow rate: 60.1 cm3/sec MR PISA radius: 0.51 cm Reading Physician:11:51 AM
--- NOTE | 2020-01-27 20:00 | PC.ADMIT ---
[id number] Admission Note: The patient,Lea Haney,69 y/o, was given written information regarding hospital policies, unit procedures and contact persons. Patient's smoking status: Unknown if ever smoked. Vital Signs - 8 hr 01/27/20 15:00 01/27/20 15:04 01/27/20 15:30 Temperature 97.7 F Pulse Rate 122 H 120 H 119 H Respiratory Rate 31 H 32 H 30 H Blood Pressure 171/99 H 158/91 H Pulse Oximetry 96 96 96 01/27/20 16:00 01/27/20 16:30 01/27/20 17:03 Temperature Pulse Rate 113 H 114 H 122 H Respiratory Rate 27 H 27 H 32 H Blood Pressure 145/84 H 148/86 H 179/93 H Pulse Oximetry 92 95 97 01/27/20 17:30 01/27/20 18:10 01/27/20 18:11 Temperature Pulse Rate 116 H 110 H 109 H Respiratory Rate 29 H 32 H 28 H Blood Pressure 148/83 H 137/81 Pulse Oximetry 93 92 94 01/27/20 18:33 01/27/20 19:10 01/27/20 19:21 Temperature 98 F Pulse Rate 111 H 116 H Respiratory Rate 20 Blood Pressure 137/73 Pulse Oximetry 95 91 95 Patient arrived via w/c, transferred self to bed without difficulty, no hx of falls or assistive devices. Axox3, can make needs known. Hx of stroke in 2012, no on any home medications though reports hx of medications r/t to stroke for about a year. C/o cough and SOB at rest and exertion, cough exacerbated by speaking and ambulation. Denies chest pain, nausea/vomiting, passing flatus. Low fall risk, call light in reach.
[2020-01-27] MEDS: METOPROLOL IR 25 MG TABLET 12.5 MG PO (20:15)
[2020-01-27] MEDS: DOCUSATE 100 MG CAPSULE PO (20:20)
[2020-01-27 20:59] LABS: Adenovirus Not Detected (Not Detect); Coronavirus 229E Not Detected (Not Detect); Coronavirus HKU1 Not Detected (Not Detect); Coronavirus NL 63 Not Detected (Not Detect); Coronavirus OC43 Not Detected (Not Detect); Human Metapneumovirus Not Detected (Not Detect); Human Rhinovirus/Enterovirus Not Detected (Not Detect); Influenza A Not Detected (Not Detect); Influenza B Not Detected (Not Detect); Parainfluenza Virus 1 Not Detected (Not Detect)
[2020-01-27 21:00] LABS: Bordetella pertussis Not Detected (Not Detect); Chlamydophila pneumoniae Not Detected (Not Detect); Mycoplasma pneumoniae Not Detected (Not Detect); Parainfluenza Virus 2 Not Detected (Not Detect); Parainfluenza Virus 3 Not Detected (Not Detect); Parainfluenza Virus 4 Not Detected (Not Detect); Respiratory Syncytial Virus Not Detected (Not Detect)
--- NOTE | 2020-01-27 21:00 | PM.HP.1 ---
History of Present Illness History of Present Illness Date Patient Seen: 01/27/20 Time Patient Seen: 20:34 Chief complaint: SOB Narrative: Ms. 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 The patient denies complaints of fevers or chills nasal congestion or sore throat. She has had no chest pain or palpitations and shortness of breath as above. She denies complaints of abdominal pain and has had no nausea vomiting complaints of diarrhea or constipation. She denies complaints a urinary symptoms of frequency urgency or burning. She denies complaints of leg swelling. The patient is normally independent in all ADLs reports no significant deficits related to her previous stroke. Upon arrival to the ER the patient afebrile with a temperature 97.7?, heart rate 122, blood pressure 171/99, respiratory rate of 31 saturating 96% on room air. Chest x-ray obtained which finds of left upper lobe opacity/infiltrate, small bilateral pleural effusions, mild pulmonary vascular congestion and pulmonary edema. Twelve lead EKG finds sinus tachycardia rate 117 with baseline artifact with left ventricular hypertrophy without ectopy or block. On laboratory analysis he has a slightly elevated white count 11.3 with a hemoglobin of 13.3 and hematocrit of 40.0 with platelets of 362. Electrolytes are all within normal limits and she has a BUN of 29 and creatinine 0.68. S 2. Her total bilirubin 0.8 an AST of 37, ALT of 60 and alkaline phosphatase of 73. Her lactic acid is 1.5 with procalcitonin of less than 0.05. ProBNP his 11,300. Her total CK is 37 and troponin is indeterminate at 0.046. On urinalysis she is positive for ketones and blood but no infection. In the ER the patient received an aspirin 324 mg chewed and Lasix 40 mg. The patient is admitted to the medicine service for acute congestive heart failure. Patient History Medical History CVA (cerebral vascular accident) (Acute) Hypertension (Acute) Surgical History Status post carotid surgery (Acute) Family & Social History Family History Father No problems noted. Mother Coronary artery disease Myocardial infarction Stroke Sister Myocardial infarction Social History: household members spouse,children Prior Living Arrangements House Safety & Behavioral: Feels Safe in Current Yes Environment Been Physically Hurt or No Threatened By a Person Suicidal Ideation Description None Suicide Plan Description No Plan Tobacco & Substance use: Smoking Status Unknown if ever smoked alcohol intake frequency holiday/special occasion Substance Use Type does not use Meds Home Medications and Allergies Home Medications Medication Instructions Recorded Confirmed Type No Known Home Medications 01/27/20 01/27/20 History Allergies Allergy/AdvReac Type Severity Reaction Status Date / Time No Known Drug Allergies Allergy Verified 01/27/20 15:06 Review of Systems Review of Systems ROS: Yes All systems reviewed with the patient and are negative except as otherwise documented Exam Vital Signs (past 8 hours): - 01/27/20 15:00 01/27/20 15:04 01/27/20 15:30 Temperature 97.7 F Pulse Rate 122 H 120 H 119 H Respiratory Rate 31 H 32 H 30 H Blood Pressure 171/99 H 158/91 H Pulse Oximetry 96 96 96 01/27/20 16:00 01/27/20 16:30 01/27/20 17:03 Temperature Pulse Rate 113 H 114 H 122 H Respiratory Rate 27 H 27 H 32 H Blood Pressure 145/84 H 148/86 H 179/93 H Pulse Oximetry 92 95 97 01/27/20 17:30 01/27/20 18:10 01/27/20 18:11 Temperature Pulse Rate 116 H 110 H 109 H Respiratory Rate 29 H 32 H 28 H Blood Pressure 148/83 H 137/81 Pulse Oximetry 93 92 94 01/27/20 18:33 01/27/20 19:10 01/27/20 19:21 Temperature 98 F Pulse Rate 111 H 116 H Respiratory Rate 20 Blood Pressure 137/73 Pulse Oximetry 95 91 95 Oxygen Delivery Method Room Air Narrative Exam Narrative: GENERAL APPEARANCE: well developed, well nourished, in no acute distress. HEENT: Normocephalic, PERRLA, conjunctiva clear, EOMs intact without nystagmus, no sinus tenderness to percussion, no rhinorrhea, dysarthria, mucous membranes are moist and pink. NECK/THYROID: neck supple, no JVD, no thyromegaly, trachea midline. LYMPH NODES: no cervical or supraclavicular lymphadenopathy. SKIN: [place], warm and dry, no visible lesions, rashes, ulcerations or petechiae. HEART: Tachycardia rate and rhythm, S1-S2, no murmur, no rubs or gallops, brisk capillary refill, no edema LUNGS: clear bilateral apices with slight diminished bases, no coarseness crackles or wheezing, nonproductive tight wheezy cough is present. CHEST: Symmetrical movement, no accessory muscle use, good tidal volume. ABDOMEN: Soft, no distention, no abdominal tenderness, no guarding or peritoneal signs, no organomegaly, no flank or suprapubic tenderness, active bowel tones. 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 NEUROLOGIC: AAO x4, no focal neurologic deficits, cranial nerves II-XII grossly intact, sensation intact to light touch, hearing grossly normal to speech. PSYCH: Good eye contact linear thought process, cooperative, appropriate with stable behavior Objective Labs Result Diagrams: 01/27/20 15:20 01/27/20 15:20 Labs: Laboratory Results - last 24 hr 01/27/20 01/27/20 01/27/20 15:15 15:20 15:20 WBC 11.3 H RBC 4.55 Hgb 13.3 Hct 40.0 MCV 88.0 MCH 29.3 MCHC 33.3 RDW 13.6 Plt Count 362 Neut % (Auto) 68.1 Lymph % (Auto) 23.8 L Sampson % (Auto) 7.2 Eos % (Auto) 0.3 L Baso % (Auto) 0.6 Neut # (Auto) 7700 H Lymph # (Auto) 2700 Sampson # (Auto) 800 Eos # (Auto) 0 Baso # (Auto) 100 Sodium 141 Potassium 4.1 Chloride 112 H Carbon Dioxide 22 BUN 29 H Creatinine 0.68 Estimated GFR > 60.0 BUN/Creatinine Ratio 42.6 H Glucose 107 Lactate Calcium 9.4 Magnesium Total Bilirubin 0.8 AST 37 H ALT 60 H Alkaline Phosphatase 73 Total Creatine Kinase CK-MB (CK-2) CK-MB (CK-2) Rel Index Troponin I NT-Pro-B Natriuret Pep Total Protein 6.8 Albumin 4.0 Globulin 2.8 Albumin/Globulin Ratio 1.4 Procalcitonin Urine Color Urine Appearance Urine pH Ur Specific Richardson Urine Protein Urine Glucose (UA) Urine Ketones Urine Occult Blood Urine Nitrate Urine Bilirubin Urine Urobilinogen Ur Leukocyte Esterase Urine RBC Urine WBC Ur Squamous Epith Cells Urine Bacteria Ur Culture Indicated? Chlamy pneumoniae PCR Adenovirus (PCR) B.parapertussis DNA PCR Coronavirus OC43 (PCR) Coronavirus HKU1 (PCR) Coronavirus 229E (PCR) COVID-19 PCR Negative Coronavirus NL63 (PCR) Human Metapneumovir PCR Influenza Type A (PCR) Influenza Type B (PCR) M. pneumoniae (PCR) Parainfluenza 1 (PCR) Parainfluenza 2 (PCR) Parainfluenza 3 (PCR) Parainfluenza 4 (PCR) RSV (PCR) Entero/Rhino (PCR) 01/27/20 01/27/20 01/27/20 15:20 15:20 15:20 WBC RBC Hgb Hct MCV MCH MCHC RDW Plt Count Neut % (Auto) Lymph % (Auto) Sampson % (Auto) Eos % (Auto) Baso % (Auto) Neut # (Auto) Lymph # (Auto) Sampson # (Auto) Eos # (Auto) Baso # (Auto) Sodium Potassium Chloride Carbon Dioxide BUN Creatinine Estimated GFR BUN/Creatinine Ratio Glucose Lactate 1.5 Calcium Magnesium 2.2 Total Bilirubin AST ALT Alkaline Phosphatase Total Creatine Kinase 37 CK-MB (CK-2) TNP CK-MB (CK-2) Rel Index TNP Troponin I 0.046 H NT-Pro-B Natriuret Pep 03239 H Total Protein Albumin Globulin Albumin/Globulin Ratio Procalcitonin < 0.05 Urine Color Urine Appearance Urine pH Ur Specific Richardson Urine Protein Urine Glucose (UA) Urine Ketones Urine Occult Blood Urine Nitrate Urine Bilirubin Urine Urobilinogen Ur Leukocyte Esterase Urine RBC Urine WBC Ur Squamous Epith Cells Urine Bacteria Ur Culture Indicated? Chlamy pneumoniae PCR Adenovirus (PCR) B.parapertussis DNA PCR Coronavirus OC43 (PCR) Coronavirus HKU1 (PCR) Coronavirus 229E (PCR) COVID-19 PCR Coronavirus NL63 (PCR) Human Metapneumovir PCR Influenza Type A (PCR) Influenza Type B (PCR) M. pneumoniae (PCR) Parainfluenza 1 (PCR) Parainfluenza 2 (PCR) Parainfluenza 3 (PCR) Parainfluenza 4 (PCR) RSV (PCR) Entero/Rhino (PCR) 01/27/20 01/27/20 17:06 19:45 WBC RBC Hgb Hct MCV MCH MCHC RDW Plt Count Neut % (Auto) Lymph % (Auto) Sampson % (Auto) Eos % (Auto) Baso % (Auto) Neut # (Auto) Lymph # (Auto) Sampson # (Auto) Eos # (Auto) Baso # (Auto) Sodium Potassium Chloride Carbon Dioxide BUN Creatinine Estimated GFR BUN/Creatinine Ratio Glucose Lactate Calcium Magnesium Total Bilirubin AST ALT Alkaline Phosphatase Total Creatine Kinase CK-MB (CK-2) CK-MB (CK-2) Rel Index Troponin I NT-Pro-B Natriuret Pep Total Protein Albumin Globulin Albumin/Globulin Ratio Procalcitonin Urine Color Yellow Urine Appearance Clear Urine pH 5.0 Ur Specific Richardson 1.025 Urine Protein Negative Urine Glucose (UA) Negative Urine Ketones Trace H Urine Occult Blood 2+ H Urine Nitrate Negative Urine Bilirubin Negative Urine Urobilinogen 0.2 Ur Leukocyte Esterase Negative Urine RBC 1-5/hpf Urine WBC 0-1/hpf Ur Squamous Epith Cells 0-1 /hpf Urine Bacteria None seen Ur Culture Indicated? Cult not indicated Chlamy pneumoniae PCR Not detected Adenovirus (PCR) Not detected B.parapertussis DNA PCR Not detected Coronavirus OC43 (PCR) Not detected Coronavirus HKU1 (PCR) Not detected Coronavirus 229E (PCR) Not detected COVID-19 PCR Coronavirus NL63 (PCR) Not detected Human Metapneumovir PCR Not detected Influenza Type A (PCR) Not detected Influenza Type B (PCR) Not detected M. pneumoniae (PCR) Not detected Parainfluenza 1 (PCR) Not detected Parainfluenza 2 (PCR) Not detected Parainfluenza 3 (PCR) Not detected Parainfluenza 4 (PCR) Not detected RSV (PCR) Not detected Entero/Rhino (PCR) Not detected Assessment & Plan Assessment & Plan narrative: This is a 69-year-old female patient who presents to the ER with increasing shortness of breath for 2 weeks, worse on exertion and with a nonproductive cough. 1. Acute shortness of breath secondary to pulmonary edema, present on admission, active -on presentation to the ER the patient was tachypneic with a respiratory rate of 31 saturating 96% for calculated PF ratio approximately 409. -chest x-ray notable for left upper lobe opacity, possible infiltrate with small bilateral pulmonary oral effusions, mild pulmonary vascular congestion with pulmonary edema. -labs appeared reflect the patient being intravascularly dry with an elevated BUN at 29 and creatinine 0.68, BUN creatinine ratio of 42.6 and urine positive for ketones. -in the ER the patient received Lasix 40 mg IV with good subjective response and decrease in respiratory rate to normal range. -ordered Lasix 20 mg daily. 2. Acute Heart failure unknown type, present on admission, active. -patient denies prior history of heart failure, she has had no chest pain or palpitations and is taking no medications. -chest x-ray reveals pulmonary vascular congestion and pulmonary edema, [place] [address]. -patient received Lasix 40 mg in the emergency department with good diuresis and subjective in respirations. Time of exam breath sounds are diminished but without crackles or coarseness. -will obtain echocardiogram in the morning. 3. Elevated troponin, present on admission, active. -patient denies complaints of chest pain or nausea, only shortness of breath. She has significant family history of cardiovascular disease with her mother having CAD, mi and stroke and her sister having an NV. -12 lead EKG reveals a sinus tachycardia 117 with artifact in left ventricular hypertrophy without ectopy or block no notable ST or T-wave changes. -initial troponin on admissions was 0.046 and total CK is 37, she also has an elevated proBNP noted above at 11,300. Elevated troponins likely related to congestive failure. -patient continues to be tachycardic, ordered metoprolol tartrate 12.5 mg by mouth x1 now, ordered metoprolol tartrate 12.5 mg twice daily -will monitor blood pressure and if able will initiate lisinopril 5-10 mg by mouth daily -will recheck cardiac panel a 2200 and with morning labs. 4. Hypertension, chronic, stable. -blood pressure on arrival is 171/99 and later on admission to the acute care floor is 137/73. -patient takes no routine antihypertensives. -follow blood pressures S the patient received Lasix, metoprolol and lisinopril. 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 The patient is admitted to the hospital due to the severity of for symptoms and need for ongoing monitoring and treatment to prevent adverse events and complications. The patient is admitted as observation status with expected length of stay to be less than 2 midnights. COVID-19 COVID-19 status: Negative Result date/Date tested (Pos, Neg/Pending): 01/27/20 Scores GCS Bet[place] coma scale eye opening: Spontaneous Bet[place] coma scale verbal response: Orientated Bet[place] coma scale motor response: Obey commands Bethel coma scale total score: 15 Quality VTE Deep Vein Thrombosis/Pulmonary Embolism Present on Admission: No
[2020-01-28] VITALS (9 sets, daily range): BP systolic 108–127; BP diastolic 67–80; PULSE 95–118; RESP 18–20; TEMP 36.3–37.3; O2SAT 92–99
[2020-01-28] MEDS: METOPROLOL IR 25 MG TABLET 12.5 MG PO (02:47)
[2020-01-28] MEDS: lisinopriL 5 MG TABLET PO (02:47)
[2020-01-28 07:21] LABS: Add Manual Diff / Slide Review NO; Basophils Absolute Auto 100 /uL (0-100); Basophils Percent Auto 1.2 % (0-2); Eosinophils Absolute Auto 400 /uL (0-450); Eosinophils Percent Auto 3.8 % (2-4); Hematocrit 35.5 % (36-46); Hemoglobin 12.1 g/dL (12.0-16.0); Lymphocytes Absolute Auto 3100 /uL (1100-4500); Lymphocytes Percent Auto 33.7 % (25-40); Mean Corpuscular HGB Conc 34.1 % (30-36); Mean Corpuscular Hemoglobin 30.2 PG (26-34); Mean Corpuscular Volume 88.4 fL (80-100); Monocytes Absolute Auto 900 /uL (0-900); Monocytes Percent Auto 9.4 % (3-14); Neutrophils Absolute Auto 4800 /uL (1500-7000); Neutrophils Percent Auto 51.9 % (50-75); Platelet Count 301 X10^3/uL (150-400); Red Blood Cell Count 4.02 X10^6/uL (4.0-5.2); Red Cell Distribution Width 13.5 % (11.6-14.8); White Blood Cell Count 9.3 X10^3/uL (4.5-11.0)
[2020-01-28 07:39] LABS: Alanine Aminotransferase 46 IU/L (<35); Albumin 3.6 g/dL (3.5-5.0); Albumin Globulin Ratio 1.3 (1.0-2.8); Alkaline Phosphatase 63 U/L (38-126); Aspartate Aminotransferase 27 IU/L (14-36); BUN Creatinine Ratio 37.7 (6-22); Bilirubin Total 0.8 mg/dL (0.2-1.3); Blood Urea Nitrogen 26 mg/dL (7-17); Calcium 8.7 mg/dL (8.4-10.2); Carbon Dioxide 27 mmol/L (22-32); Chloride 109 mmol/L (98-107); Cholesterol 160 mg/dL (140-199); Estimated Glomerular Filt Rate > 60.0 mL/min (>60); Globulin 2.7 g/dL (1.7-4.1); Glucose 93 mg/dL (80-110); HDL Cholesterol 37 mg/dL (40-60); HEMOLYSIS < 15 (0-50); LDL Cholesterol Calculated 100 mg/dL (<100); Potassium 3.1 mmol/L (3.4-5.1); Sodium 140 mmol/L (137-145); Total Protein 6.3 g/dL (6.3-8.2); Triglycerides 117 mg/dL (35-150)
[2020-01-28 07:51] LABS: NT-proBNP (BNP-Adult 18+) 7560 pg/mL (<125); Troponin I 0.023 ng/mL (0.01-0.034)
[2020-01-28] MEDS: FUROSEMIDE 20 MG TABLET PO (09:35)
[2020-01-28] MEDS: ASPIRIN EC 81 MG TABLET PO (09:35)
[2020-01-28] MEDS: SODIUM CHLORIDE 0.9% FLUSH 10 ML IV ×2 (09:36→21:32)
[2020-01-28] MEDS: METOPROLOL IR 25 MG TABLET PO ×2 (09:36→21:31)
[2020-01-28] MEDS: ENOXAPARIN 40 MG/0.4 ML SYRINGE SUBCUT (09:37)
[2020-01-28] MEDS: POTASSIUM CHLORIDE 20 MEQ TAB 40 MEQ PO (11:58)
--- NOTE | 2020-01-28 11:58 | PT.IIE ---
Surgical History (Last Reviewed 01/27/20 @ 22:53 by Jennifer Leroy PA-C) Status post carotid surgery (Acute) Medical History (Last Reviewed 01/27/20 @ 22:53 by Jennifer Leroy PA-C) CVA (cerebral vascular accident) (Acute) Hypertension (Acute) Physical Therapy Inpatient Evaluation/Re-Eval M1 PT/OT-IP Prior Functional Status Start: 01/28/20 08:26 Freq: NEEDED Status: Active Protocol: Document 01/28/20 11:39 DE (Rec: 01/28/20 11:46 DE [id number]) Medical Review Prior Functional Status Medical History Reviewed Yes Diet/Fluid Consistency Regular Communication WNL. No deficits noted. Able to make needs known. Mobility and Gait IND at baseline. Able to walk ~2 blocks. Activities of Daily Living and IADL's IND with all ADLs at baseline. Able to finish grocery shopping with a cart. Prior Functional Level (Other details) Hx of fall 2 months ago at steps inside the house. Social History Household Members spouse,children Living Arrangements House Number of Floors (Floors) One Floor Number of Stairs To Enter/Railing? 3 [place] with no railing but storage shelve on the R side going up that she can use for support. 2 steps from living room to kitchen with no railing. Home Environment Standard Height Toilet,Tub/ Shower Employment Status Unknown Additional Social History Comment Pt lives with her , who is IND, and son. M2 PT-IP Current Condition Start: 01/28/20 08:26 Freq: NEEDED Status: Active Protocol: Document 01/28/20 11:14 (Rec: 01/28/20 11:27 [id number]) Physical Therapy Current Condition Current Condition Evaluation Date 01/28/20 Treatment Diagnosis SOB d/t pulmonary edema, Acute heart failure, generalized weakness. Onset Date 2 weeks ago Weight Bearing Status Weight Bearing Status Full Weight Bearing M3 PT-IP Subjective Start: 01/28/20 08:26 Freq: NEEDED Status: Active Protocol: Document 01/28/20 11:14 HH (Rec: 01/28/20 11:27 [id number]) Subjective Physical Therapy Visit Type Type Initial Evaluation Visit Start Time 09:00 Visit Stop Time 09:15 Total Visit Minutes 15 Number of CORE INSERTER Visits 0 Physical Therapy Visit Comments Patient Comments I am doing better today Patient Goals To return home. Therapy Pain Assessment Pain Present Pain Present Denied Pain M4 PT-IP Mobility and Gait Start: 01/28/20 08:26 Freq: NEEDED Status: Active Protocol: Document 01/28/20 11:14 (Rec: 01/28/20 11:27 [id number]) PT-Bed Mobility Assessment Supine to Sit Supine to Sit Standby Assistance Sit to Supine Sit to Supine Standby Assistance Scooting Scooting to Edge of Bed Standby Assistance Scooting Up and Down in Bed Standby Assistance PT-Transfer Assessment Sit to and From Stand Sit to and from Stand Standby Assistance,Use of Upper Extremities Equipment Transfer Assistive Device Gait Belt Orthotic/Prosthetic Devices or Brace: No Transfers Transfer Destination Bed,Chair Transfer Technique Stand Step Pivot Transfer Ability Level of Assist Standby Assistance,Use of Upper Extremities Comments Mobility Comments Pt was standing in front of sink counter for self care independently upon PT and SPT arrival. She then returned to bed I. BP in supine 105/66 SpO2 98% HR 94. She was AxO 4 and agreed to mobilize with PT . She sat up from supine SBA and able to completed all strength, ROM and neuro tests. She stood up after without using UE to push off. She then amb with PT without AD down in hallway and completed 1 lap of [employer] RN station. Pt did take a rest break at 170ft chilango and SpO2 at 96% HR 116. Pt appeared to be SOB but able to recover HR to 98 within 1 min. Pt completed stair climbing afterwards and returned to room after. She was SOB and HR at 109 but returned to baseline within 1 minute. Pt returned to bed SBA and stated she is at her baseline for mobility and activity tolerance. CAll light placed within reach. Gait Assessment Gait Gait Assistance Required: Standby Assistance Distance (Feet) 220 Able to Maintain Weight Bearing Status No During Gait Assistive Devices Assistive Device None,Gait Belt Gait Deviations General Gait Pattern Decreased Stride Length, Decreased Feet Clearance Factors Limiting Gait Function Factors Limiting Gait Function Decreased Activity Tolerance, Respiratory Distress Comments Gait Comments see mobility comments. Stair Climbing Assessment Evaluation Level of Assist On Stairs Standby Assistance Technique/Endurance Stair Climbing Direction Ascend and Descend Stair Climbing Technique Step Over Step,Step to Step Number of Steps Climbed 3 Query Text: Stair Climbing Set # Repetitions (reps) 2 Comments Stair Climbing Comments step over pattern to ascend; step to for descend without railings PT-Balance Assessment Sitting Balance and Reactions Static Sitting Balance Ability Normal Dynamic Sitting Balance Ability Normal Standing Balance and Reactions Static Standing Balance Ability Normal Dynamic Standing Balance Ability Normal Device Used none M5 PT-IP Objective Assessments Start: 01/28/20 08:26 Freq: NEEDED Status: Active Protocol: Document 01/28/20 11:14 (Rec: 01/28/20 11:27 [id number]) Orientation Orientation/Cognition Level of Alertness Alert Orientation Name,Age,Birthday,Month,Date, Year,Day of Week,Place, Situation Language Function Ability No Deficits Noted Safety Awareness Understands Safety Issues Memory Description No Deficits Noted Gross Range of Motion Upper Extremity ROM Assessment Within Functional Limits Lower Extremity ROM Assessment Left Impaired Strength Upper Extremity Strength Assessment Left Impaired Shoulder 4/5 Elbow 4/5 Wrist 4/5 Lower Extremity Strength Assessment Within Functional Limits Comments Strength Comments LUE slight weaker possibly d/t previous CVA in 2012. 4/5 grossly Coordination Assessment Gross Coordination Gross Coordination WNL Sensation Assessment Sensation Gross Sensation WNL Muscle Tone Muscle Tone WNL Yes M6 PT-IP Treatment Start: 01/28/20 08:26 Freq: NEEDED Status: Active Protocol: Document 01/28/20 11:14 (Rec: 01/28/20 11:27 [id number]) Physical Therapy Treatment Education Education Provided Safety M7 PT-IP Assessment and Plan Start: 01/28/20 08:26 Freq: NEEDED Status: Active Protocol: Document 01/28/20 11:14 (Rec: 01/28/20 11:27 [id number]) PT Summary Assessment and Plan Potential Rehabilitation Potential Excellent Status of Condition at Evaluation Stable Summary Impairments Strength,Activity Tolerance Progress Towards Goals Safe For Discharge Assessment Summary This is a low complexity evaluation only for this 69yo female admitted to d/t increased SOB d/t pulmonary edema, acute heart failure and generalized weakness. Pt's PLOF is independent but low activity tolerance with walking up to 2 blocks before rest. CLOF= SBA for all mobility without any AD. She was safe during amb and stair climbing but appeared to be SOB after 170 ft and needed 1 minute break to recover. Pt stated this is her baseline and no concern for mobility at this point. D/c pt from therapy and expect her to d/c home with spouse. Participating outpatient PT will be beneficial to pt to improve her overall conditioning and strength. Frequency of Treatment Frequency Of Treatment Discharge Discharge Recommendations PT Discharge Recommendations Home with Assistance, Outpatient PT Transportation Needs at Discharge Private Vehicle
--- NOTE | 2020-01-28 13:11 | PM.PN.1 ---
Subjective Subjective Date Patient Seen: 01/28/20 Time Patient Seen: 14:00 Interval history: Ms. 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 Her echocardiogram revealed severely reduced ejection fraction of 15-20% with severe hypokinesis of her left ventricle as well as right-sided heart failure. Her troponin down trended this morning. Overnight provider ordered another proBNP which also decreased slightly. Full respiratory panel was negative. Patient was hypokalemic this morning and repleted with oral potassium. Patient was started on a small doses of beta-khadijah for her tachycardia and have started the patient on diuresis as well to see if this improves her symptoms. She denies any chest pain, nausea, diaphoresis, chest pressure, left arm tingling or numbness. Exam Vital Signs (past 8 hours): - 01/28/20 06:55 01/28/20 07:15 01/28/20 09:35 Temperature 98.3 F Pulse Rate 100 H Respiratory Rate 18 Blood Pressure 108/72 Pulse Oximetry 92 93 96 01/28/20 11:27 01/28/20 12:00 Temperature 98.0 F Pulse Rate 100 H Respiratory Rate 18 Blood Pressure 125/80 Pulse Oximetry 93 93 Oxygen Delivery Method Room Air Oxygen Flow Rate 0 Narrative Exam Narrative: GENERAL APPEARANCE: well developed, well nourished, in no acute distress. HEENT: Normocephalic, PERRLA, conjunctiva clear, EOMs intact without nystagmus, no sinus tenderness to percussion, no rhinorrhea, dysarthria, mucous membranes are moist and pink. NECK/THYROID: neck supple, no JVD, no thyromegaly, trachea midline. LYMPH NODES: no cervical or supraclavicular lymphadenopathy. SKIN: [place], warm and dry, no visible lesions, rashes, ulcerations or petechiae. HEART: Tachycardia rate and rhythm, S1-S2, no murmur, no rubs or gallops, brisk capillary refill, no edema LUNGS: clear bilateral apices with slight diminished bases, minimal bibasilar crackles R > L. No wheezing. CHEST: Symmetrical movement, no accessory muscle use, good tidal volume. ABDOMEN: Soft, no distention, no abdominal tenderness, no guarding or peritoneal signs, no organomegaly, no flank or suprapubic tenderness, active bowel tones. 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 NEUROLOGIC: AAO x4, no focal neurologic deficits, cranial nerves II-XII grossly intact, sensation intact to light touch, hearing grossly normal to speech. PSYCH: Good eye contact linear thought process, cooperative, appropriate with stable behavior Objective Labs Result Diagrams: 01/28/20 06:49 01/28/20 06:49 Labs: Laboratory Results - last 24 hr 01/27/20 01/27/20 01/27/20 15:15 15:20 15:20 WBC 11.3 H RBC 4.55 Hgb 13.3 Hct 40.0 MCV 88.0 MCH 29.3 MCHC 33.3 RDW 13.6 Plt Count 362 Neut % (Auto) 68.1 Lymph % (Auto) 23.8 L [place] % (Auto) 7.2 Eos % (Auto) 0.3 L Baso % (Auto) 0.6 Neut # (Auto) 7700 H Lymph # (Auto) 2700 [place] # (Auto) 800 Eos # (Auto) 0 Baso # (Auto) 100 Sodium 141 Potassium 4.1 Chloride 112 H Carbon Dioxide 22 BUN 29 H Creatinine 0.68 Estimated GFR > 60.0 BUN/Creatinine Ratio 42.6 H Glucose 107 Lactate Calcium 9.4 Magnesium Total Bilirubin 0.8 AST 37 H ALT 60 H Alkaline Phosphatase 73 Total Creatine Kinase CK-MB (CK-2) CK-MB (CK-2) Rel Index Troponin I NT-Pro-B Natriuret Pep Total Protein 6.8 Albumin 4.0 Globulin 2.8 Albumin/Globulin Ratio 1.4 Triglycerides Cholesterol LDL Cholesterol, Calc HDL Cholesterol Procalcitonin TSH Urine Color Urine Appearance Urine pH Ur Specific [place] Urine Protein Urine Glucose (UA) Urine Ketones Urine Occult Blood Urine Nitrate Urine Bilirubin Urine Urobilinogen Ur Leukocyte Esterase Urine RBC Urine WBC Ur Squamous Epith Cells Urine Bacteria Ur Culture Indicated? Chlamy pneumoniae PCR Adenovirus (PCR) B.parapertussis DNA PCR Coronavirus OC43 (PCR) Coronavirus HKU1 (PCR) Coronavirus 229E (PCR) COVID-19 PCR Negative Coronavirus NL63 (PCR) Human Metapneumovir PCR Influenza Type A (PCR) Influenza Type B (PCR) M. pneumoniae (PCR) Parainfluenza 1 (PCR) Parainfluenza 2 (PCR) Parainfluenza 3 (PCR) Parainfluenza 4 (PCR) RSV (PCR) Entero/Rhino (PCR) 01/27/20 01/27/20 01/27/20 15:20 15:20 15:20 WBC RBC Hgb Hct MCV MCH MCHC RDW Plt Count Neut % (Auto) Lymph % (Auto) [place] % (Auto) Eos % (Auto) Baso % (Auto) Neut # (Auto) Lymph # (Auto) [place] # (Auto) Eos # (Auto) Baso # (Auto) Sodium Potassium Chloride Carbon Dioxide BUN Creatinine Estimated GFR BUN/Creatinine Ratio Glucose Lactate 1.5 Calcium Magnesium 2.2 Total Bilirubin AST ALT Alkaline Phosphatase Total Creatine Kinase 37 CK-MB (CK-2) TNP CK-MB (CK-2) Rel Index TNP Troponin I 0.046 H NT-Pro-B Natriuret Pep 13172 H Total Protein Albumin Globulin Albumin/Globulin Ratio Triglycerides Cholesterol LDL Cholesterol, Calc HDL Cholesterol Procalcitonin < 0.05 TSH Urine Color Urine Appearance Urine pH Ur Specific [place] Urine Protein Urine Glucose (UA) Urine Ketones Urine Occult Blood Urine Nitrate Urine Bilirubin Urine Urobilinogen Ur Leukocyte Esterase Urine RBC Urine WBC Ur Squamous Epith Cells Urine Bacteria Ur Culture Indicated? Chlamy pneumoniae PCR Adenovirus (PCR) B.parapertussis DNA PCR Coronavirus OC43 (PCR) Coronavirus HKU1 (PCR) Coronavirus 229E (PCR) COVID-19 PCR Coronavirus NL63 (PCR) Human Metapneumovir PCR Influenza Type A (PCR) Influenza Type B (PCR) M. pneumoniae (PCR) Parainfluenza 1 (PCR) Parainfluenza 2 (PCR) Parainfluenza 3 (PCR) Parainfluenza 4 (PCR) RSV (PCR) Entero/Rhino (PCR) 01/27/20 01/27/20 01/27/20 15:20 17:06 19:45 WBC RBC Hgb Hct MCV MCH MCHC RDW Plt Count Neut % (Auto) Lymph % (Auto) [place] % (Auto) Eos % (Auto) Baso % (Auto) Neut # (Auto) Lymph # (Auto) [place] # (Auto) Eos # (Auto) Baso # (Auto) Sodium Potassium Chloride Carbon Dioxide BUN Creatinine Estimated GFR BUN/Creatinine Ratio Glucose Lactate Calcium Magnesium Total Bilirubin AST ALT Alkaline Phosphatase Total Creatine Kinase CK-MB (CK-2) CK-MB (CK-2) Rel Index Troponin I NT-Pro-B Natriuret Pep Total Protein Albumin Globulin Albumin/Globulin Ratio Triglycerides Cholesterol LDL Cholesterol, Calc HDL Cholesterol Procalcitonin TSH 1.50 Urine Color Yellow Urine Appearance Clear Urine pH 5.0 Ur Specific [place] 1.025 Urine Protein Negative Urine Glucose (UA) Negative Urine Ketones Trace H Urine Occult Blood 2+ H Urine Nitrate Negative Urine Bilirubin Negative Urine Urobilinogen 0.2 Ur Leukocyte Esterase Negative Urine RBC 1-5/hpf Urine WBC 0-1/hpf Ur Squamous Epith Cells 0-1 /hpf Urine Bacteria None seen Ur Culture Indicated? Cult not indicated Chlamy pneumoniae PCR Not detected Adenovirus (PCR) Not detected B.parapertussis DNA PCR Not detected Coronavirus OC43 (PCR) Not detected Coronavirus HKU1 (PCR) Not detected Coronavirus 229E (PCR) Not detected COVID-19 PCR Coronavirus NL63 (PCR) Not detected Human Metapneumovir PCR Not detected Influenza Type A (PCR) Not detected Influenza Type B (PCR) Not detected M. pneumoniae (PCR) Not detected Parainfluenza 1 (PCR) Not detected Parainfluenza 2 (PCR) Not detected Parainfluenza 3 (PCR) Not detected Parainfluenza 4 (PCR) Not detected RSV (PCR) Not detected Entero/Rhino (PCR) Not detected 01/27/20 01/28/20 01/28/20 21:48 06:49 06:49 WBC 9.3 RBC 4.02 Hgb 12.1 Hct 35.5 L MCV 88.4 MCH 30.2 MCHC 34.1 RDW 13.5 Plt Count 301 Neut % (Auto) 51.9 Lymph % (Auto) 33.7 [place] % (Auto) 9.4 Eos % (Auto) 3.8 Baso % (Auto) 1.2 Neut # (Auto) 4800 Lymph # (Auto) 3100 [place] # (Auto) 900 Eos # (Auto) 400 Baso # (Auto) 100 Sodium 140 Potassium 3.1 L Chloride 109 H Carbon Dioxide 27 BUN 26 H Creatinine 0.69 Estimated GFR > 60.0 BUN/Creatinine Ratio 37.7 H Glucose 93 Lactate Calcium 8.7 Magnesium Total Bilirubin 0.8 AST 27 ALT 46 H Alkaline Phosphatase 63 Total Creatine Kinase CK-MB (CK-2) CK-MB (CK-2) Rel Index Troponin I 0.040 H 0.023 NT-Pro-B Natriuret Pep 7560 H Total Protein 6.3 Albumin 3.6 Globulin 2.7 Albumin/Globulin Ratio 1.3 Triglycerides 117 Cholesterol 160 LDL Cholesterol, Calc 100 HDL Cholesterol 37 L Procalcitonin TSH Urine Color Urine Appearance Urine pH Ur Specific [place] Urine Protein Urine Glucose (UA) Urine Ketones Urine Occult Blood Urine Nitrate Urine Bilirubin Urine Urobilinogen Ur Leukocyte Esterase Urine RBC Urine WBC Ur Squamous Epith Cells Urine Bacteria Ur Culture Indicated? Chlamy pneumoniae PCR Adenovirus (PCR) B.parapertussis DNA PCR Coronavirus OC43 (PCR) Coronavirus HKU1 (PCR) Coronavirus 229E (PCR) COVID-19 PCR Coronavirus NL63 (PCR) Human Metapneumovir PCR Influenza Type A (PCR) Influenza Type B (PCR) M. pneumoniae (PCR) Parainfluenza 1 (PCR) Parainfluenza 2 (PCR) Parainfluenza 3 (PCR) Parainfluenza 4 (PCR) RSV (PCR) Entero/Rhino (PCR) Assessment & Plan Assessment & Plan narrative: Ms. 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 1. Acute systolic heart failure, present on admission, active -on presentation to the ER the patient was tachypneic with a respiratory rate of 31 saturating 96% for calculated PF ratio approximately 409. -chest x-ray notable for left upper lobe opacity, possible infiltrate with small bilateral pulmonary oral effusions, mild pulmonary vascular congestion with pulmonary edema. -patient received 40 mg of IV Lasix in the emergency room, will continue IV Lasix twice daily today and continue to monitor her intake and output as well as daily weights. -echocardiogram today revealed an EF of 15-20% with severe global hypokinesis. Unknown duration of failure. -will start an ROSEY-inhibitor, beta-khadijah, as well as Lasix therapy. She will likely need ischemic evaluation as an outpatient. Will continue to maximize medical therapy to control her symptoms. -respiratory panel negative on admission. -will start asa and statin therapy. 2. Elevated troponin, present on admission, active. -patient denies complaints of chest pain or nausea, only shortness of breath. She has significant family history of cardiovascular disease with her mother having CAD, mi and stroke and her sister having an IN. -12 lead EKG reveals a sinus tachycardia 117 with artifact in left ventricular hypertrophy without ectopy or block no notable ST or T-wave changes. -initial troponin on admissions was 0.046 and total CK is 37, she also has an elevated proBNP noted above at 11,300. Elevated troponins likely related to congestive failure. Has downtrended x2. No ischemic changes on repeat EKG today. -likely will need ischemic evaluation as an outpatient. 3. Hypertension, chronic, stable. -blood pressure on arrival is 171/99 and later on admission to the acute care floor is 137/73. -patient takes no routine antihypertensives. -continue metoprolol, lasix, and lisinopril. Maximize beta khadijah first once more euvolemic as her HR is still hovering around 100. 4. Hypokalemia, not present on admission, active - secondary to diuretic therapy. Repleted today. Will continue to follow. 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 Will change to inpatient status given new diagnosis of congestive heart failure and her stay is expected to exceed two midnights. Anticipate discharge home in the next 2-3 days once medically optimized. Quality VTE Deep Vein Thrombosis/Pulmonary Embolism Present on Admission: No
--- NOTE | 2020-01-28 16:01 | CM.DANOTE ---
Discharge Planning/Care Management DCP: assessment: case received, EMR reviewed and met outside pt's room during Team Bedside Rounds as pt was at that time undergoing ECHO. Dr. Hill stated that results of ECHO would likely lead to a d/c home later this evening or a transfer to higher level of care. Due to caseload triage was not able to follow up with pt later but do see that PT Napoleon did and extensive eval with final statement that pt was reporting she was at baseline in terms of functional mobility. Pt does live in [facility]. No progress note is yet in by Dr. Hill for today. Payer: Medicare Admission status: OBS: per UR RODRIGO Armenta. Pt admitted last night to care of hospitalist team. PCP: Celeste Jacobs. P: DCP team to follow up tomorrow if pt is still here to assist with d/c issues and options. CM Discharge Assessment Start: 01/28/20 16:00 Freq: Status: Active Protocol: Document 01/28/20 16:00 ITV (Rec: 01/28/20 16:01 ITV [id number]) Discharge Planning Assessment Advance Directives? No History Provided By Medical Record Prior Living Arrangements House Household Members spouse,children Review Status In Process
[2020-01-28] MEDS: FUROSEMIDE 40 MG/4 ML VIAL IV (17:38)
[2020-01-28] MEDS: ATORVASTATIN 20 MG TABLET 40 MG PO (21:31)
[2020-01-29] VITALS (9 sets, daily range): BP systolic 91–126; BP diastolic 62–77; PULSE 80–107; RESP 15–18; TEMP 36.3–37.1; O2SAT 93–98
[2020-01-29 04:54] LABS: Alanine Aminotransferase 63 IU/L (<35); Albumin 3.5 g/dL (3.5-5.0); Albumin Globulin Ratio 1.3 (1.0-2.8); Alkaline Phosphatase 64 U/L (38-126); Aspartate Aminotransferase 36 IU/L (14-36); BUN Creatinine Ratio 30.3 (6-22); Bilirubin Total 0.7 mg/dL (0.2-1.3); Bilirubin Unconjugated 0.6 mg/dL (0.0-1.1); Blood Urea Nitrogen 27 mg/dL (7-17); Calcium 8.8 mg/dL (8.4-10.2); Carbon Dioxide 29 mmol/L (22-32); Chloride 106 mmol/L (98-107); Estimated Glomerular Filt Rate > 60.0 mL/min (>60); Globulin 2.8 g/dL (1.7-4.1); Glucose 99 mg/dL (80-110); HEMOLYSIS < 15 (0-50); Magnesium 2.1 mg/dL (1.6-2.3); Potassium 4.1 mmol/L (3.4-5.1); Sodium 139 mmol/L (137-145); Total Protein 6.3 g/dL (6.3-8.2)
[2020-01-29 04:55] LABS: Add Manual Diff / Slide Review NO; Basophils Absolute Auto 100 /uL (0-100); Basophils Percent Auto 0.8 % (0-2); Eosinophils Absolute Auto 300 /uL (0-450); Eosinophils Percent Auto 2.6 % (2-4); Hematocrit 36.7 % (36-46); Hemoglobin 12.2 g/dL (12.0-16.0); Lymphocytes Absolute Auto 3800 /uL (1100-4500); Lymphocytes Percent Auto 35.6 % (25-40); Mean Corpuscular HGB Conc 33.3 % (30-36); Mean Corpuscular Hemoglobin 29.3 PG (26-34); Monocytes Absolute Auto 1000 /uL (0-900); Monocytes Percent Auto 9.7 % (3-14); Neutrophils Absolute Auto 5500 /uL (1500-7000); Neutrophils Percent Auto 51.3 % (50-75); Platelet Count 324 X10^3/uL (150-400); Red Blood Cell Count 4.17 X10^6/uL (4.0-5.2); Red Cell Distribution Width 13.4 % (11.6-14.8); White Blood Cell Count 10.8 X10^3/uL (4.5-11.0)
[2020-01-29] MEDS: FUROSEMIDE 40 MG/4 ML VIAL IV (06:03)
[2020-01-29] MEDS: DOCUSATE 100 MG CAPSULE PO ×2 (08:39→20:24)
[2020-01-29] MEDS: SODIUM CHLORIDE 0.9% FLUSH 10 ML IV ×2 (08:39→20:22)
[2020-01-29] MEDS: METOPROLOL IR 25 MG TABLET PO (08:39)
[2020-01-29] MEDS: ENOXAPARIN 40 MG/0.4 ML SYRINGE SUBCUT (08:39)
[2020-01-29] MEDS: ASPIRIN EC 81 MG TABLET PO (08:39)
--- NOTE | 2020-01-29 08:58 | PM.PN.1 ---
Subjective Subjective Date Patient Seen: 01/29/20 Time Patient Seen: 08:58 Interval history: Ms. 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 Her echocardiogram revealed severely reduced ejection fraction of 15-20% with severe hypokinesis of her left ventricle as well as right-sided heart failure. Overnight she had a short run of nonsustained ventricular tachycardia which was asymptomatic. Her beta-khadijah has been titrated up to 25 mg twice daily. Her orthopnea has improved and the patient has not required any supplemental oxygen. She still has some dyspnea on exertion. Will try and maximize her medications and continue monitoring of her heart given overnight nonsustained ventricular tachycardia before discharge home likely tomorrow. Exam Vital Signs (past 8 hours): - 01/29/20 05:28 01/29/20 08:00 01/29/20 08:47 Temperature 97.4 F L 98.1 F Pulse Rate 84 80 85 Respiratory Rate 18 15 18 Blood Pressure 126/74 114/69 Pulse Oximetry 96 95 95 Oxygen Delivery Method Room Air Oxygen Flow Rate 0 Narrative Exam Narrative: GENERAL APPEARANCE: well developed, well nourished, in no acute distress. HEENT: Normocephalic, PERRLA, conjunctiva clear, EOMs intact without nystagmus, no sinus tenderness to percussion, no rhinorrhea, dysarthria, mucous membranes are moist and pink. NECK/THYROID: neck supple, no JVD, no thyromegaly, trachea midline. LYMPH NODES: no cervical or supraclavicular lymphadenopathy. SKIN: [place], warm and dry, no visible lesions, rashes, ulcerations or petechiae. HEART: Tachycardia rate and rhythm, S1-S2, no murmur, no rubs or gallops, brisk capillary refill, no edema LUNGS: clear bilateral apices with slight diminished bases, improved minimal bibasilar crackles R > L. No wheezing. CHEST: Symmetrical movement, no accessory muscle use, good tidal volume. ABDOMEN: Soft, no distention, no abdominal tenderness, no guarding or peritoneal signs, no organomegaly, no flank or suprapubic tenderness, active bowel tones. 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 NEUROLOGIC: AAO x4, no focal neurologic deficits PSYCH: Good eye contact linear thought process, cooperative, appropriate with stable behavior Objective Labs Result Diagrams: 01/29/20 04:35 01/29/20 04:35 Labs: Laboratory Results - last 24 hr 01/29/20 01/29/20 04:35 04:35 WBC 10.8 RBC 4.17 Hgb 12.2 Hct 36.7 MCV 88.0 MCH 29.3 MCHC 33.3 RDW 13.4 Plt Count 324 Neut % (Auto) 51.3 Lymph % (Auto) 35.6 [place] % (Auto) 9.7 Eos % (Auto) 2.6 Baso % (Auto) 0.8 Neut # (Auto) 5500 Lymph # (Auto) 3800 [place] # (Auto) 1000 H Eos # (Auto) 300 Baso # (Auto) 100 Sodium 139 Potassium 4.1 Chloride 106 Carbon Dioxide 29 BUN 27 H Creatinine 0.89 Estimated GFR > 60.0 BUN/Creatinine Ratio 30.3 H Glucose 99 Calcium 8.8 Magnesium 2.1 Total Bilirubin 0.7 Conjugated Bilirubin 0.0 Unconjugated Bilirubin 0.6 AST 36 ALT 63 H Alkaline Phosphatase 64 Total Protein 6.3 Albumin 3.5 Globulin 2.8 Albumin/Globulin Ratio 1.3 Assessment & Plan Assessment & Plan narrative: Ms. 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 She was found to have a new diagnosis of heart failure with reduced ejection fraction with an EF of 15-20%. She still complains of some dyspnea on exertion but does not appear overloaded on exam. She did have an overnight run of ventricular tachycardia and warm further maximize beta-khadijah therapy prior to discharge home, likely tomorrow. 1. Acute systolic heart failure, present on admission, active -on presentation to the ER the patient was tachypneic with a respiratory rate of 31 saturating 96% for calculated PF ratio approximately 409. -chest x-ray notable for left upper lobe opacity, possible infiltrate with small bilateral pulmonary oral effusions, mild pulmonary vascular congestion with pulmonary edema. -patient received 40 mg of IV Lasix in the emergency room, continued IV Lasix twice daily until this morning and this evening will transition to 40 mg of oral Lasix twice daily. -echocardiogram today revealed an EF of 15-20% with severe global hypokinesis. This is a new diagnosis, unclear chronicity. -will continue to maximize ROSEY-inhibitor, beta-khadijah, and diuretic therapy. She will likely need ischemic evaluation as an outpatient. Will continue to maximize medical therapy to control her symptoms. -respiratory panel negative on admission. -will start asa and statin therapy. 2. Elevated troponin, present on admission, active. -patient denies complaints of chest pain or nausea, only shortness of breath. She has significant family history of cardiovascular disease with her mother having CAD, mi and stroke and her sister having an IN. -12 lead EKG reveals a sinus tachycardia 117 with artifact in left ventricular hypertrophy without ectopy or block no notable ST or T-wave changes. -initial troponin on admissions was 0.046 and total CK is 37, she also has an elevated proBNP noted above at 11,300. Elevated troponins likely related to congestive failure. Has downtrended x2. No ischemic changes on repeat EKG today. -likely will need ischemic evaluation as an outpatient. 3. Hypertension, chronic, stable. -blood pressure on arrival is 171/99 and later on admission to the acute care floor is 137/73. -patient takes no routine antihypertensives. -continue metoprolol, lasix, and lisinopril. Maximize beta khadijah first once more euvolemic as her HR is still hovering around 100. 4. Hypokalemia, not present on admission, active - secondary to diuretic therapy. Repleted today. Will continue to follow. 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 Anticipate discharge home in the next 1-2 days once medically optimized. Quality VTE Deep Vein Thrombosis/Pulmonary Embolism Present on Admission: No
--- NOTE | 2020-01-29 15:55 | CM.DPC ---
DCP Cont: Patient was made inpatient status as of 01-27, secondary to cardiac issues. Met with patient during team rounds. Dr. Hill mentioned having stress test before discharge, which should not happen until Friday. Will check in again tomorrow. Patient has worked with P.T. as well, which recommends home with assist. Patient resides with her , Juan, and son, as well. P: DCP to continue to follow and be available for any resources needed. Vannessa Trevino RN/City Assessor
[2020-01-29] MEDS: FUROSEMIDE 40 MG TABLET PO (16:31)
--- NOTE | 2020-01-29 16:50 | PC.NURSE ---
0132 Pt had 10 beats of V-tach, Provider notified, message left for RODRIGO Yañez
[2020-01-29] MEDS: ATORVASTATIN 20 MG TABLET 40 MG PO (20:24)
[2020-01-29] MEDS: METOPROLOL IR 25 MG TABLET 50 MG PO (20:24)
[2020-01-30] VITALS (8 sets, daily range): BP systolic 89–136; BP diastolic 53–83; PULSE 66–108; RESP 14–18; TEMP 36.3–37.2; O2SAT 91–97
[2020-01-30 06:14] LABS: Add Manual Diff / Slide Review NO; Basophils Absolute Auto 100 /uL (0-100); Basophils Percent Auto 1.3 % (0-2); Eosinophils Absolute Auto 400 /uL (0-450); Eosinophils Percent Auto 3.9 % (2-4); Hematocrit 38.8 % (36-46); Hemoglobin 12.9 g/dL (12.0-16.0); Lymphocytes Absolute Auto 3400 /uL (1100-4500); Lymphocytes Percent Auto 31.5 % (25-40); Mean Corpuscular HGB Conc 33.2 % (30-36); Mean Corpuscular Hemoglobin 29.2 PG (26-34); Mean Corpuscular Volume 88.2 fL (80-100); Monocytes Absolute Auto 1100 /uL (0-900); Monocytes Percent Auto 9.9 % (3-14); Neutrophils Absolute Auto 5900 /uL (1500-7000); Neutrophils Percent Auto 53.4 % (50-75); Platelet Count 328 X10^3/uL (150-400); Red Blood Cell Count 4.41 X10^6/uL (4.0-5.2); Red Cell Distribution Width 13.3 % (11.6-14.8); White Blood Cell Count 10.9 X10^3/uL (4.5-11.0)
[2020-01-30 06:20] LABS: Alanine Aminotransferase 46 IU/L (<35); Albumin 3.6 g/dL (3.5-5.0); Albumin Globulin Ratio 1.3 (1.0-2.8); Alkaline Phosphatase 65 U/L (38-126); Aspartate Aminotransferase 21 IU/L (14-36); BUN Creatinine Ratio 33.3 (6-22); Bilirubin Total 0.7 mg/dL (0.2-1.3); Bilirubin Unconjugated 0.7 mg/dL (0.0-1.1); Blood Urea Nitrogen 31 mg/dL (7-17); Calcium 8.9 mg/dL (8.4-10.2); Carbon Dioxide 33 mmol/L (22-32); Chloride 105 mmol/L (98-107); Estimated Glomerular Filt Rate > 60.0 mL/min (>60); Globulin 2.8 g/dL (1.7-4.1); Glucose 96 mg/dL (80-110); HEMOLYSIS < 15 (0-50); Magnesium 2.1 mg/dL (1.6-2.3); Sodium 139 mmol/L (137-145); Total Protein 6.4 g/dL (6.3-8.2)
[2020-01-30] MEDS: DOCUSATE 100 MG CAPSULE PO ×2 (08:53→21:12)
[2020-01-30] MEDS: FUROSEMIDE 40 MG TABLET PO (08:53)
[2020-01-30] MEDS: ENOXAPARIN 40 MG/0.4 ML SYRINGE SUBCUT (08:53)
[2020-01-30] MEDS: METOPROLOL IR 25 MG TABLET 50 MG PO (08:53)
[2020-01-30] MEDS: SODIUM CHLORIDE 0.9% FLUSH 10 ML IV ×2 (08:53→21:13)
[2020-01-30] MEDS: ASPIRIN EC 81 MG TABLET PO (08:53)
--- NOTE | 2020-01-30 09:35 | DI.NM.S_ITS ---
PROCEDURE: NM RUPINDER PERF SPECT R&S PHARM Rest and pharmacological stress myocardial perfusion SPECT with gated imaging and ejection fraction RADIOPHARMACEUTICAL: 10.1 mCi Tc-99m tetrafosmin IV at rest and 24.0 mCi Tc-99m tetrafosmin IV at peak effect of pharmacological stress. Tjv-[id number] was performed. INDICATIONS: dyspnea on exertion, EF 20% TECHNIQUE: Radiopharmaceutical was injected at peak stress test, and also at rest. SPECT images were obtained. SPECT myocardial perfusion images were displayed in short axis, horizontal long axis, and vertical long axis views. Gated images were reviewed using [employer] software. COMPARISON: None. CARDIAC STRESS: A pharmacologic stress test was performed under the supervision of an attending staff, using an infusion of lexiscan 0.4mg IV X1. Hemodynamic data: There is normal blood pressure and heart rate response to pharmacologic stress. Symptoms: The patient denied anginal chest pain. Aminophylline: none EKG: Resting ECG showed sinus tachycardia with LVH and subtle repolarization changes. 1-[address] depressions in the V6 lead. Frequent PVCs. FINDINGS: Raw data: There is good myocardial uptake of radiotracer. No significant motion artifacts. Elza-cy-ghfzu ratio is 0.34 (normal is less than 0.38 for tetrafosmin tracer). Left ventricle function: Gated images demonstrate global hypokinesis with severe hypokinesis of the apex and dyskinesis of the septum. No transient ischemic dilation; TID is 0.88 (normal less than 1.3). Left ventricle resting end diastolic volume is 158 mL. Left ventricle stress ejection fraction is 31 ; normal range is above 45%. Myocardial perfusion: There is severe reversible defect in the apex that improves mildly to moderately with prone imaging suggesting artifact with moderate amount of ischemia. No prior infarction. SSS 14 (supine stress), SRS 0. IMPRESSION: Abnormal pharmaceutical nuclear stress test 1) There is severe reversible defect in the apex that improves mildly to moderately with prone imaging suggesting artifact with moderate amount of ischemia. No prior infarction. SSS 14 (supine stress), SRS 0. 2) Enlarged left ventricle with severely reduced systolic function (EF post stress 31%). Global hypokinesis with severe hypokinesis of the apex and dyskinesis of the septum. 3) Sinus tachycardia with LVH and subtle repolarization changes at rest. With lexican, there wre 1-[address] depressions in the V6 lead. 4) No angina during the study. 5) No prior nuclear stress test available for comparison. Dictated by: Lillian Argueta MD on 01/31/2020 at 17:15 Approved by: Lillian Argueta MD on 01/31/2020 at 17:24
[2020-01-30] MEDS: SPIRONOLACTONE 25 MG TABLET PO (10:30)
--- NOTE | 2020-01-30 10:34 | PC.NURSE ---
Patient notified not to have chocolate or caffeine today and then to be NPO after midnight for anticipated stress test tomorrow. patient agrees. Resting comfortably in bed, call light withinr each.
--- NOTE | 2020-01-30 11:43 | PM.PN.1 ---
Subjective Subjective Date Patient Seen: 01/30/20 Time Patient Seen: 11:43 Interval history: Ms. 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 Her echocardiogram revealed severely reduced ejection fraction of 15-20% with severe hypokinesis of her left ventricle as well as right-sided heart failure. Overnight she had a short run of nonsustained ventricular tachycardia which was asymptomatic. Her beta-khadijah has been titrated up to 25 mg twice daily. Her orthopnea has improved and the patient has not required any supplemental oxygen. She still has dyspnea on exertion. Will try and maximize her medications and continue monitoring of her heart given overnight nonsustained ventricular tachycardia. Also concern that her dyspnea is an atypical anginal symptom, will undergo stress testing tomorrow. Exam Vital Signs (past 8 hours): - 01/30/20 05:30 01/30/20 07:39 01/30/20 08:26 Temperature 97.8 F 98.3 F Pulse Rate 102 H 102 H 108 H Respiratory Rate 18 18 14 Blood Pressure 120/75 128/83 Pulse Oximetry 94 94 93 Oxygen Delivery Method Room Air Oxygen Flow Rate 0 Narrative Exam Narrative: GENERAL APPEARANCE: well developed, well nourished, in no acute distress. HEENT: Normocephalic, PERRLA, conjunctiva clear, EOMs intact without nystagmus, no sinus tenderness to percussion, no rhinorrhea, dysarthria, mucous membranes are moist and pink. NECK/THYROID: neck supple, no JVD, no thyromegaly, trachea midline. LYMPH NODES: no cervical or supraclavicular lymphadenopathy. SKIN: [place], warm and dry, no visible lesions, rashes, ulcerations or petechiae. HEART: Tachycardia rate and rhythm, S1-S2, no murmur, no rubs or gallops, brisk capillary refill, no edema LUNGS: clear bilateral apices with slight diminished bases, improved minimal bibasilar crackles R > L. No wheezing. CHEST: Symmetrical movement, no accessory muscle use, good tidal volume. ABDOMEN: Soft, no distention, no abdominal tenderness, no guarding or peritoneal signs, no organomegaly, no flank or suprapubic tenderness, active bowel tones. 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 NEUROLOGIC: AAO x4, no focal neurologic deficits PSYCH: Good eye contact linear thought process, cooperative, appropriate with stable behavior Objective Labs Result Diagrams: 01/30/20 05:55 01/30/20 05:55 Labs: Laboratory Results - last 24 hr 01/30/20 01/30/20 05:55 05:55 WBC 10.9 RBC 4.41 Hgb 12.9 Hct 38.8 MCV 88.2 MCH 29.2 MCHC 33.2 RDW 13.3 Plt Count 328 Neut % (Auto) 53.4 Lymph % (Auto) 31.5 Elliott % (Auto) 9.9 Eos % (Auto) 3.9 Baso % (Auto) 1.3 Neut # (Auto) 5900 Lymph # (Auto) 3400 Elliott # (Auto) 1100 H Eos # (Auto) 400 Baso # (Auto) 100 Sodium 139 Potassium 4.0 Chloride 105 Carbon Dioxide 33 H BUN 31 H Creatinine 0.93 Estimated GFR > 60.0 BUN/Creatinine Ratio 33.3 H Glucose 96 Calcium 8.9 Magnesium 2.1 Total Bilirubin 0.7 Conjugated Bilirubin 0.0 Unconjugated Bilirubin 0.7 AST 21 ALT 46 H Alkaline Phosphatase 65 Total Protein 6.4 Albumin 3.6 Globulin 2.8 Albumin/Globulin Ratio 1.3 Assessment & Plan Assessment & Plan narrative: Ms. 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 She was found to have a new diagnosis of heart failure with reduced ejection fraction with an EF of 15-20%. She still complains of some dyspnea on exertion but does not appear overloaded on exam. Will add aldactone therapy and continue oral diuresis. Will perform stress testing tomorrow to rule out atypical presentation of anginal symptoms. 1. Acute systolic heart failure, present on admission, active -on presentation to the ER the patient was tachypneic with a respiratory rate of 31 saturating 96% for calculated PF ratio approximately 409. -chest x-ray notable for left upper lobe opacity, possible infiltrate with small bilateral pulmonary oral effusions, mild pulmonary vascular congestion with pulmonary edema. -patient received 40 mg of IV Lasix in the emergency room, continued IV Lasix twice daily until HD#2 and transitioned to 40 mg of oral Lasix twice daily. Will decrease to lasix daily given rising bicarb today. -echocardiogram today revealed an EF of 15-20% with severe global hypokinesis. This is a new diagnosis, unclear chronicity. -will continue to maximize ROSEY-inhibitor, beta-khadijah. -stress testing tomorrow -respiratory panel negative on admission. -continue asa and statin therapy started on admission -have started spironolactone 12.5 mg daily. 2. Elevated troponin, present on admission, active. -patient denies complaints of chest pain or nausea, only shortness of breath. She has significant family history of cardiovascular disease with her mother having CAD, mi and stroke and her sister having an NM. -12 lead EKG reveals a sinus tachycardia 117 with artifact in left ventricular hypertrophy without ectopy or block no notable ST or T-wave changes. -initial troponin on admissions was 0.046 and total CK is 37, she also has an elevated proBNP noted above at 11,300. Elevated troponins likely related to congestive failure and possible underlying ischemic disease. Has downtrended x2. No ischemic changes on repeat EKG today. -stress testing tomorrow. 3. Hypertension, chronic, stable. -blood pressure on arrival is 171/99 and later on admission to the acute care floor is 137/73. -patient with no routine antihypertensives previously. -continue metoprolol, lasix, and lisinopril as noted above 4. Hypokalemia, not present on admission, resolved - secondary to diuretic therapy. Repleted x1. Will continue to follow. - Mg level >2. 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 Anticipate discharge home possibly tomorrow depending on results of stress testing. Quality VTE Deep Vein Thrombosis/Pulmonary Embolism Present on Admission: No
[2020-01-30] MEDS: ATORVASTATIN 20 MG TABLET 40 MG PO (21:12)
[2020-01-31] VITALS (8 sets, daily range): BP systolic 112–136; BP diastolic 64–87; PULSE 80–118; RESP 16–18; TEMP 36.4–36.8; O2SAT 92–97
--- NOTE | 2020-01-31 01:02 | PC.NURSE ---
0007 Patient seen and assessed. Is alert and oriented. Breath sounds diminished at bases but CTA with RA sat of 93%; on continuous oximetry per orders. HR tachy and sounds irregular and telemetry reading was ST w/prolonged QT, BBB and occasional PVC's. Denies nausea. BT present and is passing flatus. Denies dysuria, frequency or urgency with urination. Is independent with mobility; steady on feet. Denies pain. NPO now for stress test in a.m.; patient verbalizes understanding. Fall risk score is moderate. Refuses SCD's so reminded to ankle wave when awake.
[2020-01-31 05:47] LABS: Add Manual Diff / Slide Review NO; Basophils Absolute Auto 100 /uL (0-100); Basophils Percent Auto 1.2 % (0-2); Eosinophils Absolute Auto 400 /uL (0-450); Eosinophils Percent Auto 3.6 % (2-4); Hematocrit 37.3 % (36-46); Hemoglobin 12.6 g/dL (12.0-16.0); Lymphocytes Absolute Auto 3400 /uL (1100-4500); Lymphocytes Percent Auto 31.8 % (25-40); Mean Corpuscular HGB Conc 33.7 % (30-36); Mean Corpuscular Hemoglobin 29.5 PG (26-34); Mean Corpuscular Volume 87.5 fL (80-100); Monocytes Absolute Auto 900 /uL (0-900); Monocytes Percent Auto 8.9 % (3-14); Neutrophils Absolute Auto 5800 /uL (1500-7000); Neutrophils Percent Auto 54.5 % (50-75); Platelet Count 323 X10^3/uL (150-400); Red Blood Cell Count 4.27 X10^6/uL (4.0-5.2); Red Cell Distribution Width 13.3 % (11.6-14.8); White Blood Cell Count 10.6 X10^3/uL (4.5-11.0)
[2020-01-31 05:59] LABS: Alanine Aminotransferase 34 IU/L (<35); Albumin 3.6 g/dL (3.5-5.0); Albumin Globulin Ratio 1.3 (1.0-2.8); Alkaline Phosphatase 62 U/L (38-126); Aspartate Aminotransferase 17 IU/L (14-36); BUN Creatinine Ratio 40.5 (6-22); Bilirubin Total 0.7 mg/dL (0.2-1.3); Bilirubin Unconjugated 0.7 mg/dL (0.0-1.1); Blood Urea Nitrogen 32 mg/dL (7-17); Calcium 9.2 mg/dL (8.4-10.2); Carbon Dioxide 32 mmol/L (22-32); Chloride 105 mmol/L (98-107); Estimated Glomerular Filt Rate > 60.0 mL/min (>60); Globulin 2.8 g/dL (1.7-4.1); Glucose 100 mg/dL (80-110); HEMOLYSIS < 15 (0-50); Magnesium 2.1 mg/dL (1.6-2.3); Potassium 3.9 mmol/L (3.4-5.1); Sodium 140 mmol/L (137-145); Total Protein 6.4 g/dL (6.3-8.2)
[2020-01-31] MEDS: SPIRONOLACTONE 25 MG TABLET PO (08:49)
[2020-01-31] MEDS: ENOXAPARIN 40 MG/0.4 ML SYRINGE SUBCUT (08:49)
[2020-01-31] MEDS: ASPIRIN EC 81 MG TABLET PO (08:49)
[2020-01-31] MEDS: FUROSEMIDE 40 MG TABLET PO (08:49)
[2020-01-31] MEDS: SODIUM CHLORIDE 0.9% FLUSH 10 ML IV (08:50)
--- NOTE | 2020-01-31 10:22 | CM.DPC ---
DCP Cont: Per , pt's breathing seems to have improved although sats still a little low with mobility. Per RN, pt had first part of her stress test already this morning and second part before lunch. SW met bedside with pt, RN, during MDR and pt states her breathing feels better but she is looking forward to discharging home today pending stress test to get a good night's sleep. Per MD, results of stress test likely not back until mid afternoon and pt will call her spouse and review the ferry schedule back to [place] to see if they can manage the late ferry back to [facility] if she is discharged. (looks like a 3pm, 7:10pm, and 9:05pm ferry [facility]). Pt also states her preference is to fill her prescriptions here in [place] at either [facility] or [facility] rather than fill them on [place] as it is much more expensive at the pharmacy on [place]. and RN aware. Plan: SW to follow for possible d/c home to [facility] via spouse this evening pending Stress test results and to determine which pharmacy pt would like her meds filled at. ANDREA Davis
--- NOTE | 2020-01-31 16:54 | PC.NURSE ---
Addendum entered by Gisele Zamudio R.N. 01/31/20 20:43: Pt transfered to [facility] via ambulance. D/C'd in stable condition. Original Note: Pt resting at intervals Denies discomfort, Lungs clear, denies SOB. Up to BR independently. Tele shows A-fib/BBB per ICU staff. HL LFA intact/patent. Call light w/in reach, pt calls appropriately for needs.
--- NOTE | 2020-01-31 17:58 | P.DS_ITS ---
History of Present Illness History of Present Illness Date Patient Seen: 01/31/20 Time Patient Seen: 17:59 Chief complaint: SOB Narrative: As per DELILAH Elmore: Ms. 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 The patient denies complaints of fevers or chills nasal congestion or sore throat. She has had no chest pain or palpitations and shortness of breath as above. She denies complaints of abdominal pain and has had no nausea vomiting complaints of diarrhea or constipation. She denies complaints a urinary symptoms of frequency urgency or burning. She denies complaints of leg swelling. The patient is normally independent in all ADLs reports no significant deficits related to her previous stroke. Upon arrival to the ER the patient afebrile with a temperature 97.7?, heart rate 122, blood pressure 171/99, respiratory rate of 31 saturating 96% on room air. Chest x-ray obtained which finds of left upper lobe opacity/infiltrate, small bilateral pleural effusions, mild pulmonary vascular congestion and pulmonary edema. Twelve lead EKG finds sinus tachycardia rate 117 with baseline artifact with left ventricular hypertrophy without ectopy or block. On laboratory analysis he has a slightly elevated white count 11.3 with a hemoglobin of 13.3 and hematocrit of 40.0 with platelets of 362. Electrolytes are all within normal limits and she has a BUN of 29 and creatinine 0.68. S 2. Her total bilir ubin 0.8 an AST of 37, ALT of 60 and alkaline phosphatase of 73. Her lactic acid is 1.5 with procalcitonin of less than 0.05. ProBNP his 11,300. Her total CK is 37 and troponin is indeterminate at 0.046. On urinalysis she is positive for ketones and blood but no infection. In the ER the patient received an aspirin 324 mg chewed and Lasix 40 mg. The patient is admitted to the medicine service for acute congestive heart failure. Discharge Providers Provider Date of admission: 01/28/20 18:20 Discharge Date: 01/31/20 Primary care physician: Sixto Jacobs MD Consults: 01/27/20 19:40 Consult to Discharge Planning Routine Comment: Consult to Respiratory Therapy Evaluate & Treat Comment: CHF, tachypnea, exertional dyspnea Physician Instructions: Evaluate and treat 01/27/20 19:43 Consult to Physical Therapy Evaluate & Treat Comment: S/p CVA left residual, CHF, exertional dyspnea Physician Instructions: Evaluate and Treat Discharge provider: Bran Hill DO Summary Hospital Course Discharge Diagnosis: Please see hospital course by problem list noted below. Hospital Course: Ms. 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 She was found to have a new diagnosis of heart failure with reduced ejection fraction with an EF of 15-20%. She still complained of some dyspnea on exertion but did not appear overloaded on exam. Added aldactone therapy and continued on oral Lasix but she continued to have dyspnea on exertion. Underwent stress testing to evaluate for possible atypical anginal equivalent. Stress testing ultimately showed a reversible defect and is noted below. Discussed with Cardiology at [facility] who recommended further evaluation with a left heart cat heterization. 1. Acute systolic heart failure, present on admission, active -on presentation to the ER the patient was tachypneic with a respiratory rate of 31 saturating 96% for calculated PF ratio approximately 409. -chest x-ray notable for left upper lobe opacity, possible infiltrate with small bilateral pulmonary oral effusions, mild pulmonary vascular congestion with pulmonary edema. -patient received 40 mg of IV Lasix in the emergency room, continued IV Lasix twice daily until HD#2 and transitioned to 40 mg of oral Lasix twice daily. Then decreased to lasix daily given rising bicarb to mid 30s which improved slightly on this dosing. -echocardiogram revealed an EF of 15-20% with severe global hypokinesis. This is a new diagnosis, unclear chronicity. -continued to maximize beta khadijah therapy and alisha-inhibition. She had two runs of NSVT of 10 and 11 beats on telemetry that were asymptomatic. No runs of NSVT while on 50 mg of metoprolol twice daily. -stress testing findings noted below: 1) There is severe reversible defect in the apex that improves mildly to mode rately with prone imaging suggesting artifact with moderate amount of ischemia. No prior infarction. SSS 14 (supine stress), SRS 0. 2) Enlarged left ventricle with severely reduced systolic function (EF post stress 31%). Global hypokinesis with severe hypokinesis of the apex and dyskinesis of the septum. 3) Sinus tachycardia with LVH and subtle repolarization changes at rest. With lexican, there wre 1-[address] depressions in the V6 lead -respiratory panel negative on admission. -continue asa and statin therapy started on admission -have started spironolactone 12.5 mg daily. 2. Elevated troponin, present on admission, active. -patient denies complaints of chest pain or nausea, only shortness of breath. She has significant family history of cardiovascular disease with her mother having CAD, mi and stroke and her sister having an PR. -12 lead EKG reveals a sinus tachycardia 117 with artifact in left ventricular hypertrophy without ectopy or block no notable ST or T-wave changes. -initial troponin on admissions was 0.046 and total CK is 37, she also has an elevated proBNP noted above at 11,300. Elevated troponins likely related to congestive failure and possible underlying ischemic disease. Troponin downtrended x2 after admission. No ischemic changes on repeat EKG. -stress testing as noted above 3. Hypertension, chronic, stable. -blood pressure on arrival was 171/99 and later on admission to the acute care floor is 137/73. Has remained around 120-130 systolic since admission. -patient with no routine antihypertensives previously. -continue metoprolol, lasix, and lisinopril as noted above 4. Hypokalemia, not present on admission, resolved - secondary to diuretic therapy. Repleted x1. Will continue to follow. - Mg level >2. Dispo: Admitted as inpatient, transfer to [facility] accepting physician Dr. Grayson for further cardiac evaluation given abnormal stress testing. Time Spent with Patient Time spent: Greater than 30 minutes Exam Vital Signs (past 8 hours): - 01/31/20 11:39 01/31/20 12:30 01/31/20 15:19 Temperature 98.2 F 97.8 F Pulse Rate 96 H 114 H Respiratory Rate 17 18 Blood Pressure 136/75 135/87 Pulse Oximetry 97 97 92 Oxygen Delivery Method Room Air Oxygen Flow Rate 0 Narrative Exam Narrative: GENERAL APPEARANCE: well developed, well nourished, in no acute distress. HEENT: Normocephalic, PERRLA, conjunctiva clear, EOMs intact without nystagmus, no sinus tenderness to percussion, no rhinorrhea, dysarthria, mucous membranes a re moist and pink. NECK/THYROID: neck supple, no JVD, no thyromegaly, trachea midline. LYMPH NODES: no cervical or supraclavicular lymphadenopathy. SKIN: [place], warm and dry, no visible lesions, rashes, ulcerations or petechiae. HEART: Tachycardia rate and rhythm, S1-S2, no murmur, no rubs or gallops, brisk capillary refill, no edema LUNGS: clear bilateral apices with slight diminished bases, improved minimal bibasilar crackles R > L. No wheezing. CHEST: Symmetrical movement, no accessory muscle use, good tidal volume. ABDOMEN: Soft, no distention, no abdominal tenderness, no guarding or per itoneal signs, no organomegaly, no flank or suprapubic tenderness, active bowel tones. 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 NEUROLOGIC: AAO x4, no focal neurologic deficits PSYCH: Good eye contact linear thought process, cooperative, appropriate with stable behavior Objective Labs Result Diagrams: 01/31/20 05:25 01/31/20 05:25 Labs: Laboratory Results - last 24 hr 01/31/20 01/31/20 05:25 05:25 WBC 10.6 RBC 4.27 Hgb 12.6 Hct 37.3 MCV 87.5 MCH 29.5 MCHC 33.7 RDW 13.3 Plt Count 323 Neut % (Auto) 54.5 Lymph % (Auto) 31.8 Chambers % (Auto) 8.9 Eos % (Auto) 3.6 Baso % (Auto) 1.2 Neut # (Auto) 5800 Lymph # (Auto) 3400 Chambers # (Auto) 900 Eos # (Auto) 400 Baso # (Auto) 100 Sodium 140 Potassium 3.9 Chloride 105 Carbon Dioxide 32 BUN 32 H Creatinine 0.79 Estimated GFR > 60.0 BUN/Creatinine Ratio 40.5 H Glucose 100 Calcium 9.2 Magnesium 2.1 Total Bilirubin 0.7 Conjugated Bilirubin 0.0 Unconjugated Bilirubin 0.7 AST 17 ALT 34 Alkaline Phosphatase 62 Total Protein 6.4 Albumin 3.6 Globulin 2.8 Albumin/Globulin Ratio 1.3 Discharge Plan Discharge Plan Patient Disposition: Xfer Acute Care Hospital Provider Discharge Comment: Ms. Lea Haney is a 69-year-old female with a past medical history of a CVA in 2013 affecting her left side and hypertension who was admitted with progressive dyspnea on exertion, cough, and orthopnea. She was found to have a new diagnosis of heart failure with reduced ejection fraction with an EF of 15-20%. She still complained of some dyspnea on exertion but did not appear overloaded on exam. Added aldactone therapy and continued on oral Lasix but she continued to have dyspnea on exertion. Underwent stress testing to evaluate for possible atypical anginal equivalent. Stress testing ultimately showed a reversible defect and is noted below. Discussed with [facility] rdiology at [facility] who recommended further evaluation with a left heart catheterization. 1. Acute systolic heart failure, present on admission, active -on presentation to the ER the patient was tachypneic with a respiratory rate of 31 saturating 96% for calculated PF ratio approximately 409. -chest x-ray notable for left upper lobe opacity, possible infiltrate with small bilateral pulmonary oral effusions, mild pulmonary vascular congestion with pulmonary edema. -patient received 40 mg of IV Lasix in the emergency room, continued IV Lasix twice daily until HD#2 and transitioned to 40 mg of oral Lasix twice daily. Then decreased to lasix daily given rising bicarb to mid 30s which improved slightly on this dosing. -echocardiogram revealed an EF of 15-20% with severe global hypokinesis. This is a new diagnosis, unclear chronicity. -continued to maximize beta khadijah therapy and alisha-inhibition. She had two runs of NSVT of 10 and 11 beats on telemetry that were asymptomatic. No runs of NSVT while on 50 mg of metoprolol twice daily. -stress testing findings noted below: 1) There is severe reversible defect in the apex that improves mildly to moderately with prone imaging suggesting artifact with moderate amount of ischemia. No prior infarction. SSS 14 (supine stress), SRS 0. 2) Enlarged left ventricle with severely reduced systolic function (EF post st ress 31%). Global hypokinesis with severe hypokinesis of the apex and dyskinesis of the septum. 3) Sinus tachycardia with LVH and subtle repolarization changes at rest. With lexican, there wre 1-[address] depressions in the V6 lead -respiratory panel negative on admission. -continue asa and statin therapy started on admission -have started spironolactone 12.5 mg daily. 2. Elevated troponin, present on admission, active. -patient denies complaints of chest pain or nausea, only shortness of breath. She has significant family history of cardiovascular disease with her mother having CAD, mi and stroke and her sister having an PR. -12 lead EKG reveals a sinus tachycardia 117 with artifact in left ventricular hypertrophy without ectopy or block no notable ST or T-wave changes. -initial troponin on admissions was 0.046 and total CK is 37, she also has an elevated proBNP noted above at 11,300. Elevated troponins likely related to congestive failure and possible underlying ischemic disease. Troponin downtrended x2 after admission. No ischemic changes on repeat EKG. -stress testing as noted above 3. Hypertension, chronic, stable. -blood pressure on arrival was 171/99 and later on admission to the acute care floor is 137/73. Has remained around 120-130 systolic since admission. -patient with no routine antihypertensives previously. -continue metoprolol, lasix, and lisinopril as noted above 4. Hypokalemia, not present on admission, resolved - secondary to diuretic therapy. Repleted x1. Will continue to follow. - Mg level >2. 5. Abnormal cardiac stress testing Dispo: Admitted as inpatient, transfer to [facility] Discharge orders & Medications Follow up/Referrals: Sixto Jacobs MD [Primary Care Provider] - Visit Report/Discharge Packet Instructions: DI for Heart Failure, Furosemide, Metoprolol Discharge Data Primary Care Provider: Sixto Jacobs Quality VTE Deep Vein Thrombosis/Pulmonary Embolism Present on Admission: No
[2020-01-31] MEDS: INFLUENZA HD VACCINE 0.7 ML SYRINGE IM (20:29)
== END 2020-01-31 20:44 | disposition short-term general hospital (02) | DRG 291 ==
LOC: ED 17:36 → AC 18:01
PROVIDERS: Nurse Practitioner Adult Health; Admitting Provider Internal Medicine; Emergency Provider Student in an Organized Health Care Education/Training Program; PCP Family Medicine; Visit Provider Internal Medicine
DX: I11.0 Hypertensive heart disease with heart failure (principal); I50.21 Acute systolic (congestive) heart failure; I47.2 Ventricular tachycardia; I24.9 Acute ischemic heart disease, unspecified; E87.6 Hypokalemia; R77.8 Other specified abnormalities of plasma proteins; Z11.59 Encounter for screening for other viral diseases
CPT/HCPCS: 36415; 71045; 78452; 80048; 80053; 80061; 80076; 81001; 82550; 83605; 83735; 83880; 84145; 84443; 84484; 85025; 87633; 87635; 90471; 90662; 93005; 93010; 93017; 93306; 94760; 94762; 96374; 97161; 99284; G0378; A9270; A9502; J1650; J1940; J2785

== ENCOUNTER → 2020-09-13 08:41 | Outpatient (CLI) | payer MEDICARE, MEDICAID, SELFPAY ==
[2020-01-27 18:55] VITALS: BMI 28.5
[2020-09-13 19:05] LABS: Magnesium 2.3 mg/dL (1.6-2.3)
== END ==
PROVIDERS: Nurse Practitioner; PCP Family Medicine; Visit Provider Family Medicine
DX: I10 Essential (primary) hypertension (principal); I50.9 Heart failure, unspecified
CPT/HCPCS: 83735

== ENCOUNTER → 2020-09-20 11:52 | Outpatient (CLI) | payer MEDICARE, MEDICAID, SELFPAY ==
[2020-01-27 18:55] VITALS: BMI 28.5
[2020-09-20 13:28] LABS: Alanine Aminotransferase 57 IU/L (<35); Albumin 4.5 g/dL (3.5-5.0); Albumin Globulin Ratio 1.3 (1.0-2.8); Alkaline Phosphatase 86 U/L (38-126); Aspartate Aminotransferase 52 IU/L (14-36); BUN Creatinine Ratio 32.4 (6-22); Bilirubin Total 0.6 mg/dL (0.2-1.3); Blood Urea Nitrogen 23 mg/dL (7-17); Calcium 10.7 mg/dL (8.4-10.2); Carbon Dioxide 23 mmol/L (22-32); Chloride 110 mmol/L (98-107); Estimated Glomerular Filt Rate > 60.0 mL/min (>60); Globulin 3.4 g/dL (1.7-4.1); Glucose 97 mg/dL (80-110); HEMOLYSIS 15 (0-50); Potassium 4.4 mmol/L (3.4-5.1); Sodium 141 mmol/L (137-145); Total Protein 7.9 g/dL (6.3-8.2)
[2020-09-24 17:48] LABS: Cholesterol, Total 235 mg/dL (100-199); HDL-Cholesterol 51 mg/dL (>39); HDL-Particle (Total) 38.7 umol/L (>=30.5); LDL Particle 1970 nmol/L (<1000); LDL Size 20.2 nm (>20.5); LDL-Cholsterol 142 mg/dL (0-99); LP-IR Score 77 (<=45); Small LDL- Particle 1256 nmol/L (<=527); Triglycerides 235 mg/dL (0-149)
== END ==
PROVIDERS: PCP Physician Assistant Medical; Referring Provider Specialist; Visit Provider Specialist
DX: I50.22 Chronic systolic (congestive) heart failure (principal); E78.2 Mixed hyperlipidemia; I47.2 Ventricular tachycardia
CPT/HCPCS: 36415; 80053; 80061; 83704

== ENCOUNTER → 2020-10-18 09:21 | Outpatient (CLI) | payer MEDICARE, MEDICAID, SELFPAY ==
[2020-01-27 18:55] VITALS: BMI 28.5
--- NOTE | 2020-10-18 | DI.ECHO.S_ITS ---
[place] [facility]---------+ [facility] +---------+ : : [address] : [address] [place] : : : : [id number] : : : : Phone: [phone] : [phone] +---------+ Echocardiogram Report + + :Name: SOHA WADDELL Study Date: 10/18/2020 Height: 63 in : :[facility] ReadingLocation: Weight: 160 lb : : Gender: Female BSA: 1.8 m2 : :: 1950 Age: 69 yrs BP: 150/89 mmHg: :Reason For Study: CHRONIC SYSTOLIC HEART FAILURE : :Ordering Physician: KAREN, : :LAURA Performed By: Nadira Smalls : :Referring: LAURA JONES : + + Interpretation Summary 1) Normal left ventricular size with severely reduced systolic function (EF 20-25%). 2) Global hypokinesis with apex having relatively better motion. 3) Normal right ventricular size with mildly reduced systolic function. 4) No significant valvular abnormalities. 5) Hypertension present during the study (BP 150/89mmHg). 6) Compared to the Echo done 01/28/2020, no significant improvement in LV function. Pleural effusion has resolved. Procedure: A two-dimensional transthoracic echocardiogram with color flow and Doppler was performed. The study quality was technically adequate. Comparison is made with the echocardiogram of 01/28/2020. Left Ventricle: There is normal left ventricular wall thickness. The left ventricle is normal in size. The estimated left ventricular end diastolic volume is 87 ml. The ejection fraction is estimated to be 20-25%. Global hypokinesis with apex having relatively better motion. Diastolic parameters suggest a pseudonormalization pattern, consistent with probable elevated filling pressures. Right Ventricle: The right ventricle is normal in size and function. Atria: The left atrium is mildly dilated. Right atrial size is normal. There is no Doppler evidence for an interatrial shunt. Mitral Valve: The mitral valve is normal in structure and function. There is mild mitral regurgitation. Aortic Valve: The aortic valve is trileaflet. The aortic valve opens well. There is no aortic valve stenosis. No aortic regurgitation is present. Tricuspid Valve: The tricuspid valve is normal in structure and function. There is trace tricuspid regurgitation. Pulmonary artery pressures cannot be estimated because of the lack of a measurable TR jet velocity but the IVC suggests a CVP of around 3 mmHg. Pulmonic Valve: The pulmonic valve leaflets are thin and pliable; valve motion is normal. There is mild pulmonic regurgitation. Great Vessels: The aortic root is normal size. The dimensions of the ascending aorta are normal. The IVC is of normal diameter and collapses greater than 50% with a sniff. This suggests a low right atrial pressure of 3 mm Hg. Pericardium/ Pleura There is no pericardial effusion. There is no pleural effusion. MMode/2D Measurements & Calculations LVIDd: 5.6 cm LVOT diam: 2.0 cm LVIDs: 4.9 cm Ao root diam: 3.2 cm FS: 13.6 % asc Aorta Diam: 3.0 cm IVSd: 0.84 cm Ao Arch Diam (Prox Trans): 2.6 cm LVPWd: 0.74 cm LV desir. diameter/BSA (cm/m^2): 3.2 LV sys. diameter/BSA (cm/m^2): 2.8 LA A2 area: 21.7 cm2 RA long axis: 4.5 cm LA A4 area: 19.4 cm2 RA area: 11.7 cm2 LA length (vol): 5.7 cm RA vol: 26.0 ml LA vol: 62.9 ml RA : 14.8 ml/m2 LA vol index: 35.7 ml/m2 IVC diam: 1.2 cm RVD1 (basal): 2.9 cm TAPSE: 2.0 cm Doppler Measurements & Calculations Ao V2 max: 119.5 cm/sec LVOT Max Jose: 46.2 cm/sec Ao V2 mean: 76.4 cm/sec LV V1 max P.85 mmHg Ao max P.7 mmHg LV V1 VTI: 11.2 cm Ao mean P.6 mmHg GHANSHYAM(I,D): 1.3 cm2 Ao V2 VTI: 28.8 cm GHANSHYAM(V,D): 1.3 cm2 sev ratio: 0.39 GHANSHYAM indexed to BSA (cm^2/m^2): 0.73 MV E max jose: 61.2 cm/sec PA pr(Accel): 20.8 mmHg MV A max jose: 79.5 cm/sec MV E/A: 0.77 Med Peak E' Jose: 3.0 cm/sec E/E' med: 20.4 Lat Peak E' Jose: 4.7 cm/sec E/E' lat: 13.0 E/e' average: 16.7 MV dec time: 0.24 sec SV(LVOT): 36.9 ml Reading Physician:04:00 PM
== END ==
PROVIDERS: PCP Physician Assistant Medical; Referring Provider Specialist; Visit Provider Specialist
DX: I34.0 Nonrheumatic mitral (valve) insufficiency (principal); I37.1 Nonrheumatic pulmonary valve insufficiency; I50.22 Chronic systolic (congestive) heart failure
CPT/HCPCS: 93306

== ENCOUNTER → 2021-03-09 08:02 | Outpatient (CLI) | payer MEDICARE, MEDICAID, SELFPAY ==
[2020-01-27 18:55] VITALS: BMI 28.5
[2021-03-09 18:55] LABS: Alanine Aminotransferase 54 IU/L (<35); Albumin 4.2 g/dL (3.5-5.0); Albumin Globulin Ratio 1.6 (1.0-2.8); Alkaline Phosphatase 80 U/L (38-126); Aspartate Aminotransferase 43 IU/L (14-36); Bilirubin Total 0.7 mg/dL (0.2-1.3); Blood Urea Nitrogen 18 mg/dL (7-17); Calcium 9.9 mg/dL (8.4-10.2); Carbon Dioxide 27 mmol/L (22-32); Chloride 105 mmol/L (98-107); Cholesterol 191 mg/dL (140-199); Estimated Glomerular Filt Rate > 60.0 mL/min (>60); Globulin 2.6 g/dL (1.7-4.1); Glucose 89 mg/dL (80-110); HDL Cholesterol 48 mg/dL (40-60); HEMOLYSIS < 15 (0-50); LDL Cholesterol Calculated 111 mg/dL (<100); Magnesium 2.3 mg/dL (1.6-2.3); Potassium 3.8 mmol/L (3.4-5.1); Sodium 141 mmol/L (137-145); Total Protein 6.8 g/dL (6.3-8.2); Triglycerides 161 mg/dL (35-150)
[2021-03-13 09:45] LABS: Cholesterol, Total 194 mg/dL (100-199); HDL-Cholesterol 50 mg/dL (>39); HDL-Particle (Total) 35.5 umol/L (>=30.5); LDL Particle 1482 nmol/L (<1000); LDL-Cholsterol 117 mg/dL (0-99); LP-IR Score 69 (<=45); Small LDL- Particle 458 nmol/L (<=527); Triglycerides 154 mg/dL (0-149)
== END ==
PROVIDERS: PCP Physician Assistant Medical; Visit Provider Specialist
DX: I47.2 Ventricular tachycardia (principal); E78.2 Mixed hyperlipidemia; I50.22 Chronic systolic (congestive) heart failure
CPT/HCPCS: 80053; 80061; 83704; 83735

== ENCOUNTER → 2021-04-18 10:47 | Outpatient (CLI) | payer MEDICARE, MEDICAID, SELFPAY ==
[2020-01-27 18:55] VITALS: BMI 28.5
[2021-04-18 19:20] LABS: Alanine Aminotransferase 41 IU/L (<35); Albumin 4.4 g/dL (3.5-5.0); Albumin Globulin Ratio 1.6 (1.0-2.8); Alkaline Phosphatase 79 U/L (38-126); Aspartate Aminotransferase 40 IU/L (14-36); BUN Creatinine Ratio 24.4 (6-22); Bilirubin Total 0.6 mg/dL (0.2-1.3); Blood Urea Nitrogen 20 mg/dL (7-17); Calcium 9.8 mg/dL (8.4-10.2); Carbon Dioxide 26 mmol/L (22-32); Chloride 106 mmol/L (98-107); Cholesterol 197 mg/dL (140-199); Estimated Glomerular Filt Rate > 60.0 mL/min (>60); Globulin 2.7 g/dL (1.7-4.1); Glucose 93 mg/dL (80-110); HDL Cholesterol 55 mg/dL (40-60); HEMOLYSIS < 15 (0-50); LDL Cholesterol Calculated 110 mg/dL (<100); Magnesium 2.2 mg/dL (1.6-2.3); Potassium 4.4 mmol/L (3.4-5.1); Sodium 140 mmol/L (137-145); Total Protein 7.1 g/dL (6.3-8.2); Triglycerides 160 mg/dL (35-150)
== END ==
PROVIDERS: PCP Physician Assistant Medical; Referring Provider Specialist; Visit Provider Specialist
DX: E78.2 Mixed hyperlipidemia (principal); I47.2 Ventricular tachycardia; I50.22 Chronic systolic (congestive) heart failure
CPT/HCPCS: 80053; 80061; 83735

== ENCOUNTER → 2021-05-02 08:49 | Outpatient (CLI) | payer MEDICARE, MEDICAID, SELFPAY ==
[2020-01-27 18:55] VITALS: BMI 28.5
[2021-05-02 21:14] LABS: COVID19 - ORCAS (NP or Nasal) POSITIVE (Negative)
== END ==
PROVIDERS: PCP Physician Assistant Medical; Visit Provider Physician Assistant
DX: U07.1 COVID-19 (principal)
CPT/HCPCS: U0003

== ENCOUNTER → 2021-06-28 09:31 | Outpatient (CLI) | payer MEDICARE, MEDICAID, SELFPAY ==
[2020-01-27 18:55] VITALS: BMI 28.5
[2021-06-28 19:22] LABS: Alanine Aminotransferase 25 IU/L (<35); Albumin 4.4 g/dL (3.5-5.0); Albumin Globulin Ratio 1.6 (1.0-2.8); Alkaline Phosphatase 64 U/L (38-126); Aspartate Aminotransferase 27 IU/L (14-36); BUN Creatinine Ratio 23.5 (6-22); Bilirubin Total 0.6 mg/dL (0.2-1.3); Blood Urea Nitrogen 20 mg/dL (7-17); Carbon Dioxide 25 mmol/L (22-32); Chloride 107 mmol/L (98-107); Estimated Glomerular Filt Rate > 60.0 mL/min (>60); Globulin 2.7 g/dL (1.7-4.1); Glucose 99 mg/dL (80-110); HEMOLYSIS < 15 (0-50); Sodium 140 mmol/L (137-145); Total Protein 7.1 g/dL (6.3-8.2)
[2021-07-02 14:49] LABS: Cholesterol, Total 168 mg/dL (100-199); HDL-Cholesterol 55 mg/dL (>39); HDL-Particle (Total) 37.4 umol/L (>=30.5); LDL Particle 1151 nmol/L (<1000); LDL-Cholsterol 86 mg/dL (0-99); LP-IR Score 60 (<=45); Small LDL- Particle 557 nmol/L (<=527); Triglycerides 154 mg/dL (0-149)
== END ==
PROVIDERS: PCP Physician Assistant Medical; Visit Provider Specialist
DX: E78.2 Mixed hyperlipidemia (principal); I25.5 Ischemic cardiomyopathy
CPT/HCPCS: 80053; 80061; 83704

== ENCOUNTER → 2021-07-16 13:29 | Outpatient (CLI) | payer MEDICARE, MEDICAID, SELFPAY ==
[2020-01-27 18:55] VITALS: BMI 28.5
--- NOTE | 2021-07-16 | DI.ECHO.S_ITS ---
[place]---------+ [facility] +---------+ : : [address] [place] : : : : [id number] : : : : Phone: [phone] +---------+ Echocardiogram Report + + :Name: SOHA WADDELL Study Date: 07/16/2021 Height: 63 in : :[facility] ReadingLocation: Weight: 162 lb : : Gender: Female BSA: 1.8 m2 : :: 1950 Age: 70 yrs BP: 166/96 mmHg: :Reason For Study: SYSTOLIC HEART FAILURE : :Ordering Physician: LATISHA, : :ANUEL MAZARIEGOS Performed By: Nadira Smalls : :Referring: ANUEL GOOD : + + Interpretation Summary Left ventricular systolic function is moderately depressed with an estimated ejection fraction of 35 to 40% with a moderate dyssynchronous contraction pattern and moderate global hypokinesis with more significant hypokinesis in the inferior wall and inferior septum. Global contractility and overall systolic function has significantly improved since the previous exam. Left ventricular size is normal and smaller compared to the previous study. Wall thickness remains normal and unchanged. Diastolic function is challenging to assess but there is now a probable relaxation abnormality, suggesting normal filling pressures, likely lower compared to the previous exam. The right ventricle remains normal and unchanged. Right ventricular systolic pressure cannot be estimated but CVP is likely around 3 mmHg. Both atria are normal in size. The left atrium is mildly smaller compared to the previous study. There is mild mitral regurgitation that is less prominent compared to the previous study but no other significant valvular abnormalities. Procedure: A two-dimensional transthoracic echocardiogram with color flow and Doppler was performed. The study quality was technically adequate. Comparison is made with the echocardiogram of 10/18/2020. The heart rate ranged between 54-90 bpm during the study. Left Ventricle: The left ventricle is normal in size and wall thickness. The estimated left ventricular end diastolic volume is 63 mL compared to the previous 87 ml. Left ventricular systolic function is moderately reduced. The ejection fraction is estimated to be 35-40%. There is moderate global hypokinesis of the left ventricle. There is more severe hypokinesis in the inferior wall and inferior septum. Global contractility has improved since the previous study. Diastolic function could not be accurately assessed due to unobtainable data. This is likely lower compared to the previous study. Right Ventricle: The right ventricle is normal in size and function. This is unchanged compared to the previous study. Atria: Both atria are normal in size. The left atrium has mildly decreased in size since the prior echo exam. There is no Doppler evidence for an interatrial shunt. Mitral Valve: The mitral valve leaflets appear mildly thickened, but open well. There is a flat closure plane of the the mitral valve leaflets. There is mild mitral regurgitation. This is less prominent compared to the previous study. Aortic Valve: The aortic valve is trileaflet. The aortic valve is mildly calcified. The aortic valve opens well. There is no aortic valve stenosis. No aortic regurgitation is present. Tricuspid Valve: The tricuspid valve is normal in structure and function. There is trace tricuspid regurgitation. Pulmonary artery pressures cannot be estimated because of the lack of a measurable TR jet velocity but the IVC suggests a CVP of around 3 mmHg. Pulmonic Valve: The pulmonic valve leaflets are thin and pliable; valve motion is normal. There is trace pulmonic regurgitation. Great Vessels: The aortic root is normal size. The dimensions of the ascending aorta are normal. The IVC is of normal diameter and collapses greater than 50% with a sniff. This suggests a low right atrial pressure of 3 mm Hg. Pericardium/ Pleura There is no pericardial effusion. There is no pleural effusion. MMode/2D Measurements & Calculations LVIDd: 4.4 cm LVOT diam: 2.1 cm LVIDs: 3.7 cm Ao root diam: 3.0 cm FS: 15.2 % asc Aorta Diam: 3.1 cm IVSd: 1.0 cm Ao Arch Diam (Prox Trans): 1.9 cm LVPWd: 1.0 cm LV desir. diameter/BSA (cm/m^2): 2.5 LV sys. diameter/BSA (cm/m^2): 2.1 LA A2 area: 16.7 cm2 RA long axis: 4.9 cm LA A4 area: 13.1 cm2 RA area: 10.6 cm2 LA length (vol): 4.1 cm RA vol: 19.7 ml LA vol: 45.1 ml RA : 11.1 ml/m2 LA vol index: 25.5 ml/m2 IVC diam: 0.94 cm RVD1 (basal): 2.6 cm RVD2 (mid): 2.4 cm TAPSE: 1.5 cm Doppler Measurements & Calculations Ao V2 max: 118.8 cm/sec LVOT Max Jose: 79.1 cm/sec Ao V2 mean: 82.5 cm/sec LV V1 max P.5 mmHg Ao max P.6 mmHg LV V1 VTI: 15.7 cm Ao mean P.0 mmHg GHANSHYAM(I,D): 2.5 cm2 Ao V2 VTI: 22.4 cm GHANSHYAM(V,D): 2.4 cm2 sev ratio: 0.70 GHANSHYAM indexed to BSA (cm^2/m^2): 1.4 Med Peak E' Jose: 8.2 cm/sec PA V2 max: 78.7 cm/sec PA V2 mean: 56.7 cm/sec PA mean P.5 mmHg PA pr(Accel): 32.8 mmHg SV(LVOT): 56.0 ml Reading Physician:04:25 PM
== END ==
PROVIDERS: PCP Physician Assistant Medical; Referring Provider Student in an Organized Health Care Education/Training Program; Visit Provider Student in an Organized Health Care Education/Training Program
DX: I50.22 Chronic systolic (congestive) heart failure (principal); I34.0 Nonrheumatic mitral (valve) insufficiency
CPT/HCPCS: 93306

== ENCOUNTER → 2021-08-09 10:08 | Outpatient (CLI) | payer MEDICARE, MEDICAID, SELFPAY ==
[2020-01-27 18:55] VITALS: BMI 28.5
[2021-08-09 19:06] LABS: BUN Creatinine Ratio 23.6 (6-22); Blood Urea Nitrogen 17 mg/dL (7-17); Calcium 9.5 mg/dL (8.4-10.2); Carbon Dioxide 23 mmol/L (22-32); Chloride 108 mmol/L (98-107); Estimated Glomerular Filt Rate > 60 mL/min (>60); Glucose 96 mg/dL (80-110); HEMOLYSIS < 15 (0-50); Magnesium 2.1 mg/dL (1.6-2.3); Potassium 4.4 mmol/L (3.4-5.1); Sodium 142 mmol/L (137-145)
== END ==
PROVIDERS: PCP Physician Assistant Medical; Visit Provider Specialist
DX: I25.5 Ischemic cardiomyopathy (principal); I10 Essential (primary) hypertension; I47.2 Ventricular tachycardia; I50.22 Chronic systolic (congestive) heart failure; E78.2 Mixed hyperlipidemia
CPT/HCPCS: 80048; 83735

== ENCOUNTER → 2021-10-23 09:19 | Outpatient (CLI) | payer MEDICARE, MEDICAID, SELFPAY ==
[2020-01-27 18:55] VITALS: BMI 28.5
[2021-10-23 20:44] LABS: Alanine Aminotransferase 19 IU/L (<35); Albumin 4.1 g/dL (3.5-5.0); Albumin Globulin Ratio 1.7 (1.0-2.8); Alkaline Phosphatase 51 U/L (38-126); Aspartate Aminotransferase 23 IU/L (14-36); BUN Creatinine Ratio 29.9 (6-22); Bilirubin Total 0.7 mg/dL (0.2-1.3); Blood Urea Nitrogen 23 mg/dL (7-17); Calcium 9.3 mg/dL (8.4-10.2); Carbon Dioxide 24 mmol/L (22-32); Chloride 107 mmol/L (98-107); Cholesterol 143 mg/dL (140-199); Estimated Glomerular Filt Rate > 60 mL/min (>60); Globulin 2.4 g/dL (1.7-4.1); Glucose 93 mg/dL (80-110); HDL Cholesterol 52 mg/dL (40-60); HEMOLYSIS < 15 (0-50); LDL Cholesterol Calculated 75 mg/dL (<100); Magnesium 2.3 mg/dL (1.6-2.3); Sodium 139 mmol/L (137-145); Total Protein 6.5 g/dL (6.3-8.2); Triglycerides 81 mg/dL (35-150)
[2021-10-23 20:45] LABS: Potassium 4.7 mmol/L (3.4-5.1)
== END ==
PROVIDERS: PCP Physician Assistant Medical; Visit Provider Specialist
DX: E78.2 Mixed hyperlipidemia (principal); I25.5 Ischemic cardiomyopathy; I50.9 Heart failure, unspecified; I47.2 Ventricular tachycardia; I50.22 Chronic systolic (congestive) heart failure; I11.0 Hypertensive heart disease with heart failure
CPT/HCPCS: 80053; 80061; 83735

== ENCOUNTER → 2022-01-30 11:24 | Outpatient (CLI) | payer MEDICARE, MEDICAID, SELFPAY ==
[2020-01-27 18:55] VITALS: BMI 28.5
[2022-01-30 19:31] LABS: Alanine Aminotransferase 22 IU/L (<35); Albumin 4.3 g/dL (3.5-5.0); Albumin Globulin Ratio 1.5 (1.0-2.8); Alkaline Phosphatase 63 U/L (38-126); Aspartate Aminotransferase 21 IU/L (14-36); BUN Creatinine Ratio 27.5 (6-22); Bilirubin Total 0.7 mg/dL (0.2-1.3); Blood Urea Nitrogen 22 mg/dL (7-17); Calcium 9.5 mg/dL (8.4-10.2); Carbon Dioxide 28 mmol/L (22-32); Chloride 105 mmol/L (98-107); Cholesterol 147 mg/dL (140-199); Estimated Glomerular Filt Rate > 60 mL/min (>60); Globulin 2.8 g/dL (1.7-4.1); Glucose 96 mg/dL (80-110); HDL Cholesterol 62 mg/dL (40-60); HEMOLYSIS < 15 (0-50); LDL Cholesterol Calculated 61 mg/dL (<100); Magnesium 2.2 mg/dL (1.6-2.3); Potassium 4.2 mmol/L (3.4-5.1); Sodium 142 mmol/L (137-145); Total Protein 7.1 g/dL (6.3-8.2); Triglycerides 121 mg/dL (35-150)
== END ==
PROVIDERS: PCP Physician Assistant Medical; Visit Provider Specialist
DX: I25.5 Ischemic cardiomyopathy (principal); I50.9 Heart failure, unspecified; E78.2 Mixed hyperlipidemia; I10 Essential (primary) hypertension; I73.9 Peripheral vascular disease, unspecified
CPT/HCPCS: 80053; 80061; 83735

== ENCOUNTER → 2024-08-09 10:37 | Outpatient (CLI) | payer MEDICARE, SELFPAY ==
[2020-01-27 18:55] VITALS: BMI 28.5
[2024-08-09 12:01] LABS: Add Manual Diff / Slide Review NO; Basophils Absolute Auto 100 /uL (0-100); Basophils Percent Auto 0.6 % (0-2); Eosinophils Absolute Auto 100 /uL (0-450); Eosinophils Percent Auto 0.7 % (2-4); Hematocrit 44.5 % (36-46); Hemoglobin 15.1 g/dL (12.0-16.0); Lymphocytes Absolute Auto 1600 /uL (1100-4500); Lymphocytes Percent Auto 16.1 % (25-40); Mean Corpuscular HGB Conc 33.9 % (30-36); Mean Corpuscular Hemoglobin 30.5 PG (26-34); Mean Corpuscular Volume 89.9 fL (80-100); Monocytes Absolute Auto 700 /uL (0-900); Monocytes Percent Auto 6.7 % (3-14); Neutrophils Absolute Auto 7600 /uL (1500-7000); Neutrophils Percent Auto 75.9 % (50-75); Platelet Count 247 X10^3/uL (150-400); Red Blood Cell Count 4.95 X10^6/uL (4.0-5.2); Red Cell Distribution Width 14.6 % (11.6-14.8)
[2024-08-09 12:25] LABS: Alanine Aminotransferase 20 IU/L (<35); Albumin 4.7 g/dL (3.5-5.0); Albumin Globulin Ratio 1.9 (1.0-2.8); Alkaline Phosphatase 63 U/L (38-126); Aspartate Aminotransferase 23 IU/L (14-36); BUN Creatinine Ratio 30.4 (6-22); Bilirubin Total 1.2 mg/dL (0.2-1.3); Blood Urea Nitrogen 28 mg/dL (7-17); Calcium 9.8 mg/dL (8.4-10.2); Carbon Dioxide 22 mmol/L (22-32); Chloride 107 mmol/L (98-107); Cholesterol 225 mg/dL (140-199); Estimated Glomerular Filt Rate > 60 mL/min (>60); Globulin 2.5 g/dL (1.7-4.1); Glucose 101 mg/dL (70-99); HDL Cholesterol 71 mg/dL (40-60); HEMOLYSIS < 15 (0-50); LDL Cholesterol Calculated 132 mg/dL (<100); Magnesium 2.1 mg/dL (1.6-2.3); Potassium 4.5 mmol/L (3.4-5.1); Sodium 139 mmol/L (137-145); Total Protein 7.2 g/dL (6.3-8.2); Triglycerides 108 mg/dL (35-150)
[2024-08-09 12:32] LABS: NT-proBNP (BNP-Adult 18+) 7690 pg/mL (<125)
--- NOTE | 2024-08-09 12:39 | DI.ECHO.S_ITS ---
[place] +---------+ [facility] : : [address] : : [place] : : [id number] : : Phone: [phone] Echocardiogram Report + + :Name: SOHA WADDELL Study Date: 08/09/2024 Height: 63 in : :[facility] ReadingLocation: Weight: 150 lb : : Gender: Female BSA: 1.7 m2 : :: 1950 Age: 73 yrs BP: 139/84 mmHg: :Reason For Study: ISCHEMIC CARDIOMYOPATHY : :Ordering Physician: KAREN, : :LAURA Performed By: Robert Garza : :Referring: LAURA JONES : + + Interpretation Summary Left ventricular systolic function is severely reduced with an estimated ejection fraction of 25% with moderate to severe global hypokinesis that appears worse in the interventricular septum. The left ventricle is moderately enlarged and significantly larger and less dynamic compared to the previous study. Filling pressures are challenging to assess, but likely significantly elevated and higher compared to the previous study. The right ventricle is normal in size with borderline hypokinesis and appears slightly less dynamic compared to the previous study. Right ventricular systolic pressure cannot be estimated but CVP is likely around 3 mmHg. There is severe left atrial enlargement that is markedly larger compared to the previous exam. There is mild to moderate mitral regurgitation that is slightly more prominent compared to the previous study. There is no other significant functional valvular abnormality. There is a small pericardial effusion adjacent to the right atrium that is new from the previous exam. The patient appears to be in sinus rhythm at 85 to 100 bpm, significantly faster compared to the previous study when she was in the 60 to 80 bpm range. Procedure: A two-dimensional transthoracic echocardiogram with color flow and Doppler was performed. The study quality was technically adequate. Comparison is made with the echocardiogram of 07/16/2021. The heart rate ranged between 69-110 bpm during the study. Left Ventricle: The left ventricle is mild-moderately dilated. The estimated left ventricular end diastolic volume is 167 mL compared to the previous 63 ml. There is normal left ventricular wall thickness. There is no ventricular septal defect visualized. A false chord is noted (normal variant). Left ventricular systolic function is severely reduced. The ejection fraction is estimated to be 25-30%. There is moderate to severe global hypokinesis of the left ventricle. This appears to be worse in the interventricular septum but there is no other clear focality. The left ventricle appears larger and less dynamic compared to the previous exam. Diastolic parameters suggest a restrictive filling pattern consistent with probable significantly elevated filling pressures. Right Ventricle: The right ventricle is normal size. Right ventricular systolic function is borderline reduced. This is slightly less dynamic compared to the previous study. Atria: The left atrium is severely dilated. The left atrium has markedly increased in size since the prior echo exam. Right atrial size is normal. This is unchanged compared to the previous study. There is no Doppler evidence for an interatrial shunt. Mitral Valve: The mitral valve leaflets appear normal. There is no evidence of stenosis, fluttering, or prolapse. There is mild to moderate mitral regurgitation. This is slightly more prominent compared to the previous study. Aortic Valve: The aortic valve is trileaflet. The aortic valve is mildly calcified. The aortic valve opens well. No aortic regurgitation is present. Tricuspid Valve: The tricuspid valve leaflets are thin and pliable. There is trace tricuspid regurgitation. Pulmonic Valve: The pulmonic valve leaflets are thin and pliable; valve motion is normal. There is trace pulmonic regurgitation. Great Vessels: The aortic root is normal size. The dimensions of the ascending aorta are normal. The pulmonary artery is normal size. The IVC is of normal diameter and collapses greater than 50% with a sniff. This suggests a low right atrial pressure of 3 mm Hg. Pericardium/ Pleura There is a small pericardial effusion noted. There is no pleural effusion. MMode/2D Measurements & Calculations LVIDd: 5.9 cm LVOT diam: 1.9 cm LVIDs: 5.4 cm Ao root diam: 2.9 cm FS: 7.8 % asc Aorta Diam: 3.0 cm EPSS: 1.8 cm IVSd: 1.0 cm LVPWd: 0.93 cm LV desir. diameter/BSA (cm/m^2): 3.4 LV sys. diameter/BSA (cm/m^2): 3.2 LA A2 area: 26.4 cm2 RA long axis: 4.1 cm LA A4 area: 29.9 cm2 RA area: 10.8 cm2 LA length (vol): 6.1 cm RA vol: 24.3 ml LA vol: 110.0 ml RA : 14.2 ml/m2 LA vol index: 64.3 ml/m2 IVC diam: 1.5 cm RVD1 (basal): 2.9 cm RVD2 (mid): 2.4 cm TAPSE: 1.9 cm Doppler Measurements & Calculations Ao V2 max: 134.4 cm/sec LVOT Max Jose: 99.3 cm/sec Ao V2 mean: 92.8 cm/sec LV V1 max P.9 mmHg Ao max P.2 mmHg LV V1 VTI: 17.6 cm Ao mean P.8 mmHg GHANSHYAM(I,D): 2.0 cm2 Ao V2 VTI: 25.4 cm GHANSHYAM(V,D): 2.1 cm2 sev ratio: 0.69 GHANSHYAM indexed to BSA (cm^2/m^2): 1.2 MV E max jose: 73.9 cm/sec PA V2 max: 67.6 cm/sec MV A max jose: 31.7 cm/sec PA V2 mean: 50.5 cm/sec MV E/A: 2.3 PA mean P.1 mmHg Med Peak E' Jose: 4.5 cm/sec PA pr(Accel): 49.9 mmHg E/E' med: 16.5 MV dec time: 0.16 sec SV(LVOT): 50.3 ml Reading Physician:04:01 PM
[2024-08-09 12:56] LABS: Thyroid Stimulating Hormone 0.988 uIU/mL (0.47-4.68)
== END ==
PROVIDERS: Family Medicine; PCP Physician Assistant Medical; Referring Provider Physician Assistant Medical; Visit Provider Specialist
DX: I31.39 Other pericardial effusion (noninflammatory) (principal); I25.5 Ischemic cardiomyopathy; I11.0 Hypertensive heart disease with heart failure; I50.9 Heart failure, unspecified; I34.0 Nonrheumatic mitral (valve) insufficiency; T50.2X5A Adverse effect of carbonic-anhydrase inhibitors, benzothiadiazides and other diuretics, initial encounter; I47.29 Other ventricular tachycardia; Z86.73 Personal history of transient ischemic attack (TIA), and cerebral infarction without residual deficits
CPT/HCPCS: 36415; 80053; 80061; 83735; 83880; 84443; 85025; 93306

== ENCOUNTER → 2025-02-01 09:50 | Outpatient (CLI) | payer MEDICARE, SELFPAY ==
[2025-01-11 16:12] VITALS: BMI 28.5
== END ==
PROVIDERS: PCP Physician Assistant Medical; Visit Provider Specialist
DX: E78.2 Mixed hyperlipidemia (principal)
CPT/HCPCS: 80061; 83704

== ENCOUNTER → 2025-02-28 12:02 | Outpatient (CLI) | payer MEDICARE, SELFPAY ==
[2025-01-11 16:12] VITALS: BMI 28.5
[2025-02-28 19:01] LABS: Blood Urea Nitrogen 26 mg/dL (7-17); Calcium 9.2 mg/dL (8.4-10.2); Carbon Dioxide 24 mmol/L (22-32); Chloride 110 mmol/L (98-107); Estimated Glomerular Filt Rate > 60 mL/min (>60); Glucose 94 mg/dL (70-99); HEMOLYSIS < 15 (0-50); Magnesium 2.1 mg/dL (1.6-2.3); Potassium 4.5 mmol/L (3.4-5.1); Sodium 141 mmol/L (137-145)
== END ==
PROVIDERS: PCP Physician Assistant Medical; Visit Provider Specialist
DX: I50.22 Chronic systolic (congestive) heart failure (principal)
CPT/HCPCS: 80048; 83735